=== PATIENT | male | born 1945 | race Caucasian/White ===

== ENCOUNTER 2016-07-27 03:15 | Inpatient (IN) | payer MEDICARE, OTHER ==
[~2016-07-27] VITALS: Ht 162.6 cm; Wt 100.0 kg
[~2016-07-27 03:15] MED LIST: AMLO-218 PO; ASPI-676 PO; CLOP75TA27 PO; CLOT30CR35 TOP; ESOM40CA PO; EZET10TA3 PO; LORA-441 PO; METO200T4 PO; NASO17 NASAL; NITR0.4T6 SL; OMEG1CAP2 PO; RESTOP4 BOTH EYES; SIMV40TA2 PO; SITA1TAB7 PO; SOLI5TAB5 PO; TAMS-14 PO; VALS320T11 PO
[2016-07-27] MEDS ORDERED: SODIUM CHLORIDE 0.9% 1L BAG IV* STA (04:28)
[2016-07-27] MEDS ORDERED: ACETAMINOPHEN 325 MG TAB PO STA (04:28)
--- NOTE | 2016-07-27 04:58 | RADRPT ---
PROCEDURE: XR Chest. CLINICAL INDICATION: Possible Sepsis TECHNIQUE: Single frontal chest x-ray. COMPARISON: 07/16/2015 FINDINGS: There is hypoinflation of the lungs and bibasilar atelectasis and possible infiltrates/interstitial pulmonary edema. The heart does not appear to be grossly enlarged. There is appearance of pulmonary vascular congestion appearing since the previous study. Calcification in the aortic arch. ECG lead s projected over the chest. Degenerative changes at acromioclavicular joints and in thoracic spine. IMPRESSION: Hypoinflation of the lungs and bibasilar atelectasis and possible infiltrates/interstitial pulmonary edema appearing since previous study. Pulmonary vascular congestion appearing since previous study. Please see above. RPTAT: HJES .Elio Bishop MD, Date Time Electronically viewed and signed by .Elio Bishop MD, on 07/27/2016 04:58 .S/
[2016-07-27 05:36] LABS: ADD SCAN DIFF NO
[2016-07-27 05:42] LABS: ABNORMAL IP MESSAGE 1; BASOPHILS % 0.8 % (0.0-2.0); EOSINOPHILS % 0.6 % (0.0-7.0); HEMATOCRIT 31.5 % (42.0-52.0); HEMOGLOBIN 9.9 g/dl (14.0-18.0); LYMPHOCYTES # 1.1 10^3/ul (0.8-2.9); LYMPHOCYTES % 20.2 % (15.0-51.0); MEAN CORPUSCULAR HEMOGLOBIN 18.9 pg (29.0-33.0); MEAN CORPUSCULAR HGB CONC 31.4 g/dl (32.0-37.0); MONOCYTE # 0.8 10^3/ul (0.3-0.9); MONOCYTES % 14.1 % (0.0-11.0); NEUTROPHIL # 3.4 10^3/ul (1.6-7.5); NEUTROPHILS % 63.9 % (39.0-77.0); PLATELET COUNT 172 10^3/UL (140-415); RED BLOOD COUNT 5.25 10^6/ul (4.70-6.10); RED CELL DISTRIBUTION WIDTH 17.1 % (11.5-14.5); WHITE BLOOD COUNT 5.3 10^3/ul (4.8-10.8)
[2016-07-27 05:48] LABS: ALBUMIN 4.5 g/dl (3.3-4.9)
[2016-07-27 05:48] LABS: ADD UMIC YES; URINE BILIRUBIN (Dip) NEGATIVE (NEGATIVE); URINE BLOOD (Dip) TRACE (NEGATIVE); URINE COLOR LT. YELLOW (YELLOW); URINE GLUCOSE (Dip) NEGATIVE (NEGATIVE); URINE KETONES (Dip) NEGATIVE (NEGATIVE); URINE LEUKOCYTE ESTERASE (Dip) NEGATIVE (NEGATIVE); URINE NITRITE (Dip) NEGATIVE (NEGATIVE); URINE TOTAL PROTEIN (Dip) 1+ (NEGATIVE); URINE UROBILINOGEN (Dip) 0.2 E.U./dL (0.1-1.0)
[2016-07-27 05:49] LABS: CHLORIDE 101 mmol/L (97-110); POTASSIUM 4.4 mmol/L (3.5-5.1); SODIUM 140 mmol/L (135-144)
[2016-07-27 05:51] LABS: ANION GAP 20 (8-16); BILIRUBIN,INDIRECT 0.2 mg/dl (0-1.1); BILIRUBIN,TOTAL 0.2 mg/dl (0.2-1.3); CARBON DIOXIDE 23 mmol/L (21-31); CREATININE 0.88 mg/dl (0.61-1.24)
[2016-07-27 05:52] LABS: ALANINE AMINOTRANSFERASE 32 IU/L (13-69); ALBUMIN/GLOBULIN RATIO 1.45; ALKALINE PHOSPHATASE 59 IU/L (42-121); ASPARTATE AMINO TRANSFERASE 35 IU/L (15-46); BLOOD UREA NITROGEN 17 mg/dl (7-20); CALCIUM 9.5 mg/dl (8.4-10.2); GLUCOSE 181 mg/dl (70-220); TOTAL PROTEIN 7.6 g/dl (6.1-8.1)
[2016-07-27 05:59] LABS: INR 0.99; PROTIME 13.1 Sec (12.2-14.2)
[2016-07-27 06:00] LABS: PARTIAL THROMBOPLASTIN TIME 30.1 Sec (25.0-35.0)
[2016-07-27 06:02] LABS: MEAN PLATELET VOLUME 10.5 fl (7.4-10.4)
[2016-07-27 06:04] LABS: TROPONIN-I < 0.012 ng/ml (0.00-0.12)
[2016-07-27 06:29] LABS: SQUAMOUS EPITHELIAL CELL,UR RARE; URINE RBCS 0-2 /HPF (0)
[2016-07-27 06:30] LABS: BACTERIA,URINE OCCASIONAL; URIC ACID CRYSTALS,URINE MODERATE
[2016-07-27 06:57] VITALS: TEMP 99.1
[2016-07-27 09:07] VITALS: Ht 162.6 cm; Wt 100.0 kg
[2016-07-27 09:09] VITALS: BP 148/66; PULSE 92; RESP 18
[2016-07-27 09:45] VITALS: BP 148/66; RESP 20
[2016-07-27] MEDS ORDERED: ACETAMINOPHEN 325 MG TAB PO PRN (10:00)
[2016-07-27] MEDS ORDERED: GLUCOSE GEL 15 GRAM TUBE PO PRN ×2 (10:30)
[2016-07-27] MEDS ORDERED: GLUCAGON 1 MG INJ IM PRN (10:30)
[2016-07-27] MEDS ORDERED: DEXTROSE 50% 50 ML SYRINGE IV PRN ×2 (10:30)
[2016-07-27] MEDS ORDERED: GLUCOSE GEL 15 GRAM TUBE BUCCAL PRN (10:30)
[2016-07-27] MEDS: CEFTRIAXONE 1 GM/50 ML (PMX) 50 ML IVPB SCH (11:46)
[2016-07-27] MEDS: ENOXAPARIN 40 MG/0.4 ML SYG SC SCH (11:47)
[2016-07-27] MEDS ORDERED: NON-FORMULARY/PATIENT OWN MED (Sitagliptin Phos-Metformin Hcl (Janumet) 1 TAB) PO SCH (12:00)
[2016-07-27] MEDS ORDERED: NON-FORMULARY/PATIENT OWN MED (Esomeprazole Mag Trihydrate (Nexium) 40 MG) PO SCH (12:00)
[2016-07-27] MEDS ORDERED: ALBUTEROL/IPRATROPIUM (NEB) 3 ML AMP HHN PRN (12:30)
[2016-07-27] MEDS: LEVOFLOXACIN 500MG/D5W (PMX) 100 ML IVPB SCH (12:33)
[2016-07-27] MEDS: ASPIRIN 81 MG TAB PO SCH (12:33)
[2016-07-27] MEDS: CLOPIDOGREL 75 MG TAB PO SCH (12:33)
[2016-07-27] MEDS: TAMSULOSIN (SR) 0.4 MG CAP PO SCH (12:34)
[2016-07-27] MEDS: INSULIN ASPART [NOVOLOG] 3 ML PEN SC SCH ×4 (12:38→21:00)
[2016-07-27] MEDS: METOPROLOL (XL) 100 MG TAB PO SCH (14:00)
[2016-07-27] MEDS ORDERED: FUROSEMIDE 20 MG INJ IV ONE (14:00)
[2016-07-27] MEDS: metFORMIN 500 MG TAB PO SCH (18:03)
[2016-07-27] MEDS: LINAGLIPTIN 5 MG TABLET PO SCH (18:04)
--- NOTE | 2016-07-27 18:37 | RADRPT ---
Echocardiogram Report Patient Name: JANESSA CRAWFORD Gender: Male Date: 1945 Study Date: 27-Jul-2016 Clutch Inspector: Marcus Monaco RUST Location: 2259 Ref. Physician: ZARINA BRITO Quality: Adequate Procedures: Transthoracic echocardiogram with complete 2D, M-Mode, and doppler examination. Indications: Congestive Heart Failure. 2D/M Mode Doppler Measurement Value Normal Ranges Measurement Value Normal Ranges LVIDd 2D 5.6 3.5 - 5.6 cm AV Peak Lloyd 1.4 m/sec LVIDs 2D 3.3 2.1 - 4.1 cm AV Peak PG 7.0 mmHg FS 2D 39.9 % LVOT Peak Lloyd 0.9 m/sec LVPWd 2D 1.0 0.6 - 1.1 cm LVOT Peak PG 4.0 mmHg IVSd 2D 1.0 0.6 - 1.1 cm MV E Peak Lloyd 0.6 m/sec IVS/LVPW 2D 0.9 MV A Peak Lloyd 0.8 m/sec AoR Diam 2D 2.7 2.0 - 3.7 cm MV E/A 0.8 LA/Ao 2D 1 0 - 1 MV Decel Time 173 msec EDV 2D 173.0 cm3 MV E/A 0.8 ESV 2D 37.6 cm3 LA Dimen 2D 3.3 2.3 - 4.0 cm Findings Left Ventricle: Normal left ventricular systolic function. Normal left ventricular cavity size. Normal left ventricular wall thickness. Ejection fraction is visually estimated at 5560 %. Tissue Doppler/Mitral Doppler indices are consistent with impaired relaxation (Stage I diastolic dysfunction). Right Ventricle: Normal right ventricular size. Normal right ventricular systolic function. Left Atrium: The left atrium is normal in size. Right Atrium: The right atrium is normal in size. Mitral Valve: Normal appearance of the mitral valve. Mild mitral annular calcification. Trace mitral regurgitation. Aortic Valve: No significant aortic stenosis or insufficiency. Aortic cusps appear mildly calcified. Tricuspid Valve: Normal appearance of the tricuspid valve. Unable to obtain RVSP due to minimal presence of tricuspid regurgitation. Pulmonic Valve: Normal pulmonic valve appearance. Pericardium: Normal pericardium with no significant pericardial effusion. Aorta: Normal aortic root. IVC: Normal size and normal respiratory collapse consistent with normal right atrial pressure. Conclusions 1.Normal left ventricular systolic function. Normal left ventricular cavity size. Normal left ventricular wall thickness. Ejection fraction is visually estimated at 55-60 %. Tissue Doppler/Mitral Doppler indices are consistent with impaired relaxation (Stage I diastolic dysfunction). 2.Normal appearance of the mitral valve. Mild mitral annular calcification. Trace mitral regurgitation. 3.Normal appearance of the tricuspid valve. Unable to obtain RVSP due to minimal presence of tricuspid regurgitation. Electronically Signed By: Zarina Brito 27-Jul-2016 18:37:04 -0700 Patient Name: JANESSA CRAWFORD Study Date: 27-Jul-2016 [id number]
[2016-07-27 19:44] LABS: CK-MB 2.29 ng/ml (0.0-2.4); TROPONIN-I 0.013 ng/ml (0.00-0.12)
--- NOTE | 2016-07-27 20:14 | HP ---
DATE OF ADMISSION: 07/27/2016 CHIEF COMPLAINT: Fever and dry cough. HISTORY OF PRESENT ILLNESS: The patient is a 71-year-old [place] gentleman known to me from previo admission. The patient with history of coronary artery disease status post stent placement, hype rtension, diabetes mellitus, hyperlipidemia, BPH. The patient stated he has been compliant with his medication and he follows with a specialist, Dr. Hopkins, for cardiology and also follow up with urol ogy specialist for many years. The patient has a stent placement in 2001 at [facility] and the n 3 stent placements in [address] Brito. The patient stated that he was in his usual state of h ealth until a couple of days ago. He was stated he was picking up his granddaughter who was sick wi th flu and after that the patient developed a fever, dry cough, and intermittent shortness of breath . The patient denies any chest pain, denies any extremity swelling. The patient denies any nausea, vomiting. Denies dysuria. The patient felt significantly worse last night and decided to come to the emergency room. In the emergency room, patient was found to have fever of 101.3 and blood press ure elevated to 186/84. The patient underwent a chest x-ray, which revealed hypoinflation of the rosanne ngs and bibasilar atelectasis and possible infiltrate/interstitial pulmonary edema appearing since p revious study, pulmonary vascular congestion appearing since previous study. The patient was starte d on Rocephin and was admitted for further evaluation and management. PAST MEDICAL HISTORY: Per HPI. PAST SURGICAL HISTORY: Per HPI. The patient also is status post hernia repair in 1993. FAMILY HISTORY: Noncontributory. SOCIAL HISTORY: The patient is a former smoker. The patient quit in 2001. Currently does not smok e. The patient does not abuse illicit drugs. The patient uses alcohol occasionally. Lives at home with his family. ALLERGIES: THE PATIENT IS ALLERGIC TO PROCAINE. HOME MEDICATIONS: The patient does not remember exactly and asked for the family to bring the medic ations. The patient stated he takes: 1. Aspirin. 2. Plavix. PRIOR MEDICATIONS: Include: 1. Norvasc. 2. Zetia. 3. Ativan. 4. Metoprolol. 5. Flomax. 6. Diovan. 7. VESIcare. 8. Simvastatin. 9. Janumet. 10. Nexium. REVIEW OF SYSTEMS: A 12-point review of systems is negative unless mentioned in the HPI. PHYSICAL ASSESSMENT: GENERAL: Well-developed, obese gentleman. Currently, he is awake, alert, in no acute distress. VITAL SIGNS: Temperature is 97.6, pulse is 92, blood pressure 148/66, respiratory rate 20, oxygen s aturation 96% on room air. HEENT: Head is atraumatic, normocephalic. Pupils equal, round, reactive to light and accommodation . Oral mucosa is pink and moist. NECK: Supple. No cervical lymphadenopathy, no thyromegaly. CHEST: Lungs clear, both slightly diminished at the bases. There are no rhonchi, wheezes noted. CARDIOVASCULAR: Normal S1, S2. No murmurs, gallops, clicks, rubs noted. ABDOMEN: Protuberant, soft, nondistended, nontender. Bowel sounds present. EXTREMITIES: The patient has mild edema, 1+. No clubbing, no cyanosis. Pulses equal bilaterally 2 +. SKIN: There is no rash, petechiae noted. NEUROLOGIC: The patient is awake, alert, and oriented x4. No focal deficits noted. Motor strength 5/5 in all extremities. LABORATORY DATA: On admission, CBC: White blood cells 5.3, hemoglobin 9.9, hematocrit 31.5, platel ets 172. Chemistry: Sodium is 140, potassium 4.4, chloride 101, carbon dioxide 23, anion gap 20, B UN is 17, creatinine 0.88, glucose 181. Lactic acid is 1.9. Troponin less than 0.012. ASSESSMENT AND PLAN: 1. Possible healthcare-acquired pneumonia. We will continue patient on Rocephin. Continue breathi ng treatment. 2. Rule out acute coronary syndrome. We will obtain cardiac enzymes q.8 hours x3 and 12-lead EKG. Dr. Brito will be following the patient in cardiology consultation. 3. Coronary artery disease, status post multiple stent placements in 2001 and 2005. Continue aspir in and Plavix. 4. Diabetes mellitus type 2. Continue patient's home medication, 1800 ADA diet, in addition to a 2 gram low fat, low cholesterol diet. Will start patient on NovoLog moderate algorithm sliding scale . 5. Benign prostatic hypertrophy. Continue Flomax. 6. Hypertension. Continue patient on metoprolol. 7. Obesity. Weight loss advised. 8. Will obtain influenza A and B swab. 9. Will check BNP. 10. Continue Lovenox for deep venous thrombosis prophylaxis and Nexium for peptic ulcer disease pro phylaxis. Further recommendations based on clinical course. Plan of care discussed with Dr. Ramachandran. Dictated By: GAURAV FERRO REPORTING COORDINATOR for DANISHA RAMACHANDRAN MD SR/NTS Conf#: [id number] DID#: [id number] CC: DANISHA RAMACHANDRAN MD;*EndCC*
[2016-07-27] MEDS: ATORVASTATIN 20 MG TAB PO SCH (20:42)
[2016-07-27] MEDS ORDERED: NON-FORMULARY/PATIENT OWN MED (Simvastatin* (Zocor*) 40 MG) PO SCH (21:00)
[2016-07-27 21:32] VITALS: BP 154/73; RESP 16
--- NOTE | 2016-07-27 21:43 | CONS ---
DATE OF ADMISSION: 07/27/2016 DATE OF CONSULTATION: 07/27/2016 REASON FOR CONSULTATION: Congestive heart failure exacerbation. REQUESTING PHYSICIAN: Danisha Villegas MD HISTORY OF PRESENT ILLNESS: Mr. Montanez is a 71-year-old male with a history of coronary artery d isease, status post prior PTCA and stent placement 2001, 2002, 2005; dyslipidemia; peripheral arteri al disease; prior tobacco usage; hypertension who initially presented with fevers. Patient addition ally had complaints of shortness of breath. Upon arrival, temperature 101.3, blood pressure 186/84, pulse 110, respiratory 20, saturating 94%. The patient's labs, white blood cell count 5.3, hemoglo bin 9.9, platelet count 172. Sodium 140, potassium 4.4, creatinine 0.8, BUN 17, AST 35, ALT 32. Tr oponin negative. INR 0.99. UA negative. The patient underwent a chest x-ray revealing hypoinflati on of the lungs, bibasilar atelectasis, and possible infiltrate or interstitial edema. Patient's el ectrocardiogram revealed normal sinus rhythm, rate of 99, normal axis, normal intervals with nonspec ific ST and T-wave flattening diffusely. Patient subsequently admitted to the floor and since admit to floor denies chest pain, shortness of breath. PAST MEDICAL HISTORY: As above in HPI. MEDICATIONS CURRENTLY IN HOSPITAL: 1. Protonix mg daily. 2. Lipitor 20 mg at bedtime. 3. Tradjenta 5 mg p.o. b.i.d. 4. Metformin 1000 mg b.i.d. 5. DuoNeb. 6. Aspirin 81 mg daily. 7. Plavix 75 mg daily. 8. Metoprolol XL 200 mg daily. 9. Flomax 0.4 mcg daily. 10. Lovenox 40 mg subcutaneous daily. 11. Ceftriaxone IV daily. 12. Levofloxacin IV daily. ALLERGIES: PROCAINE. SOCIAL HISTORY: Prior tobacco, no current tobacco. No ETOH or illicit drug use. FAMILY HISTORY: No history of sudden cardiac or early CAD. REVIEW OF SYSTEMS: As above in HPI. CONSTITUTIONAL: Positive fevers. PULMONARY: Mild shortness of breath. CARDIOVASCULAR: No current chest pain. GASTROINTESTINAL: No vomiting. GENITOURINARY: No hematuria. MUSCULOSKELETAL: Degenerative joint disease. PSYCHIATRIC: The patient denies depression. NEUROLOGIC: No documented history of CVA. PHYSICAL EXAMINATION VITAL SIGNS: Temperature 97.6, blood pressure most recently 148/66, pulse 93, respiratory rate 20, saturating 96%. GENERAL: The patient is alert, awake, in no acute distress. NECK: JVP approximately 9 to 10 cm of water. CHEST: Bibasilar crackles. HEART: Regular rate and rhythm. Normal S1, S2, I/ systolic murmur, nondisplaced PMI. ABDOMEN: Positive bowel sounds, soft. EXTREMITIES: Trace edema, 1+ pulses bilaterally, posterior tibial. LABORATORY DATA: As above in HPI with no further labs for review at this time. IMAGING STUDIES: As above in HPI. No further imaging studies for my review at this time. ECG: As above in HPI. No further electrocardiograms for my review at this time. IMPRESSION: 1. Congestive heart failure exacerbation, diastolic by previous echo 2015. 2. Hypertension, mildly elevated. 3. History of coronary artery disease. 4. Fevers. 5. Possible pneumonia. 6. Anemia. 7. Borderline urinary tract infection. RECOMMENDATIONS: 1. At this time, would complete a rule out for myocardial infarction to ensure the patient's EKG RI s are chronic in nature and not due to any recent acute coronary syndrome. 2. Continue the patient's current beta piotr for control of blood pressure and will add MARY inhib itor to improve overall systolic blood pressure control. 3. Will continue the patient's statin and adjust it according to a fasting lipid panel check. 4. Will initiate patient on gentle Lasix diuresis, following strict I's and O's, diuresis cl osely. 5. Check a 2D echo to reassess the patient's ejection fraction, wall motion and any major abnormali ties and continue the patient's antibiotics at this time and follow up all culture data including ur ine culture. Thank you for allowing me to take part in the care of this patient. I will continue to follow along very closely with you with further recommendations to be made as the patient progresses through his inpatient hospital clinical course. Dictated By: ZARINA SCHULTZ/JODEE Conf#: [id number] DID#: [id number] CC: DANISHA VILLEGAS MD;*EndCC*
[2016-07-27] MEDS ORDERED: EZET10TA3 PO (22:40)
[2016-07-27] MEDS ORDERED: OMEG1CAP2 PO (22:41)
[2016-07-27] MEDS ORDERED: AMLO-147 PO (22:46)
[2016-07-27] MEDS ORDERED: VALS320T14 PO (22:46)
[2016-07-27] MEDS ORDERED: SMV40T PO (22:46)
[2016-07-27] MEDS ORDERED: SITA1TAB5 PO (22:46)
[2016-07-28 01:13] LABS: TROPONIN-I 0.021 ng/ml (0.00-0.12)
[2016-07-28 01:36] LABS: CK-MB 2.02 ng/ml (0.0-2.4)
[2016-07-28] MEDS: ACCU-CHEK XX SCH (02:00)
[2016-07-28 05:38] LABS: ADD SCAN DIFF NO
[2016-07-28 06:07] LABS: CHOL/HDL RATIO 4.7 RATIO
[2016-07-28 06:19] LABS: POTASSIUM 4.5 mmol/L (3.5-5.1)
[2016-07-28 06:22] LABS: CREATININE 0.94 mg/dl (0.61-1.24)
[2016-07-28 06:23] LABS: CALCIUM 8.7 mg/dl (8.4-10.2)
[2016-07-28 06:24] LABS: ABNORMAL IP MESSAGE 1; BASOPHILS % 0.6 % (0.0-2.0); EOSINOPHILS # 0.1 10^3/ul (0.0-0.5); HEMOGLOBIN 9.4 g/dl (14.0-18.0); LYMPHOCYTES # 1.6 10^3/ul (0.8-2.9); LYMPHOCYTES % 31.4 % (15.0-51.0); MEAN CORPUSCULAR HEMOGLOBIN 18.6 pg (29.0-33.0); MEAN CORPUSCULAR HGB CONC 30.3 g/dl (32.0-37.0); MEAN CORPUSCULAR VOLUME 61.4 fl (82.0-101.0); MONOCYTE # 0.9 10^3/ul (0.3-0.9); MONOCYTES % 16.9 % (0.0-11.0); NEUTROPHIL # 2.5 10^3/ul (1.6-7.5); NEUTROPHILS % 49.7 % (39.0-77.0); PLATELET COUNT 157 10^3/UL (140-415); RED BLOOD COUNT 5.05 10^6/ul (4.70-6.10); RED CELL DISTRIBUTION WIDTH 18.1 % (11.5-14.5); WHITE BLOOD COUNT 5.1 10^3/ul (4.8-10.8)
[2016-07-28] MEDS: PANTOPRAZOLE (EC) 40 MG TAB PO SCH (06:29)
[2016-07-28] MEDS: INSULIN ASPART [NOVOLOG] 3 ML PEN SC SCH ×3 (08:00→17:49)
[2016-07-28 08:06] VITALS: BP 128/59; RESP 16
[2016-07-28] MEDS: BENAZEPRIL 10 MG TAB PO SCH (08:51)
[2016-07-28] MEDS: TAMSULOSIN (SR) 0.4 MG CAP PO SCH (08:51)
[2016-07-28] MEDS: ASPIRIN 81 MG TAB PO SCH (08:51)
[2016-07-28] MEDS: LINAGLIPTIN 5 MG TABLET PO SCH ×2 (08:51→18:18)
[2016-07-28] MEDS: metFORMIN 500 MG TAB PO SCH ×2 (08:51→18:18)
[2016-07-28] MEDS: METOPROLOL (XL) 100 MG TAB PO SCH ×2 (08:52→20:53)
[2016-07-28] MEDS: CLOPIDOGREL 75 MG TAB PO SCH (08:52)
[2016-07-28] MEDS: ENOXAPARIN 40 MG/0.4 ML SYG SC SCH (08:54)
--- NOTE | 2016-07-28 10:08 | CONS ---
Date/Time of Note Date/Time of Note DATE: 07/28/16 TIME: 10:06 Assessment/Plan Assessment/Plan Additional Assessment/Plan 1. Congestive heart failure exacerbation, diastolic by previous echo 2016- better fluid status - con't to keep euvolemic. 2. Hypertension, mildly elevated - better now, will adjust therapy as needed 3. History of coronary artery disease- R/o [place] - no intervention planned now 4. Fevers- with PNA - on anti-bx, feels better today 5. Possible pneumonia. 6. Anemia- H/H stable - no evidence of bleeding 7. Borderline urinary tract infection. Consultation Date/Type/Reason Admit Date/Time Jul 27, 2016 at 18:28 Initial Consult Date 24 HR Interval Summary Free Text/Dictation No acute events - feels much better today - no fever - stable fluid status - con 't anti-Bx ROS: No fever, no chills, no nausea, no vomiting, no diarrhea/constipation No recent weight changes No chest pain, no PND, no orthopnea No dizziness, blurred vision No thirst, no heat or cold intolerance Exam/Review of Systems Vital Signs Vitals Vital Signs Date Time Temp Pulse Resp B/P Pulse Ox O2 Delivery O2 Flow Rate FiO2 07/28/16 08:06 98.7 78 16 128/59 94 07/27/16 09:09 Room Air Intake and Output 07/27/16 07/27/16 07/28/16 15:00 23:00 07:00 Intake Total 150 ml 620 ml 300 ml Balance 150 ml 620 ml 300 ml Exam General: WN/WD/NAD, AOx 3 HEENT: Unicetric/atraumatic/EOMI (follow commands) NECK: JVD elevated, no thyromegaly Lymph: no lymphadenopathy HEART: regular with no S3, II/ systolic murmur at apex LUNGS: Coarse sounds ABD: soft, NT, ND, +BS : Intact Neuro: non focal SKIN: chronic changes EXT: trace edema Results Result Diagram: 07/28/16 0510 07/28/16 0510 Results 24 hrs Laboratory Tests Test 07/27/16 11:56 07/27/16 17:05 07/27/16 19:00 07/27/16 20:38 Bedside Glucose 202 173 156 Creatine Kinase 211 H Creatine Kinase Index 1.1 Creatinine Kinase MB (Mass) 2.29 Troponin I 0.013 Test 07/28/16 00:30 07/28/16 05:10 07/28/16 08:09 Creatine Kinase 193 Creatine Kinase Index 1.0 Creatinine Kinase MB (Mass) 2.02 Troponin I 0.021 Anion Gap 19 H Basophils # 0.0 Basophils % 0.6 Blood Urea Nitrogen 18 Calcium Level 8.7 Carbon Dioxide Level 25 Chloride Level 100 Cholesterol Level 127 Cholesterol/HDL Ratio 4.7 Creatinine 0.94 Eosinophils # 0.1 Eosinophils % 1.0 Glucose Level 127 # HDL Cholesterol 27 L Hematocrit 31.0 L Hemoglobin 9.4 L LDL Cholesterol, Calculated 43 Lymphocytes # 1.6 Lymphocytes % 31.4 Mean Corpuscular Hemoglobin 18.6 L Mean Corpuscular Hemoglobin Concent 30.3 L Mean Corpuscular Volume 61.4 L Mean Platelet Volume Monocytes # 0.9 Monocytes % 16.9 H Neutrophils # 2.5 Neutrophils % 49.7 Nucleated Red Blood Cells # 0.0 Nucleated Red Blood Cells % 0.0 Platelet Count 157 Potassium Level 4.5 Red Blood Count 5.05 Red Cell Distribution Width 18.1 H Sodium Level 139 Triglycerides Level 285 H White Blood Count 5.1 Bedside Glucose 149 Medications Medications Current Medications Acetaminophen (Tylenol Tab) 650 mg Q4H PRN PO PAIN AND OR ELEVATED TEMP; Start 07/27/16 at 10:00 Enoxaparin Sodium 40 mg 40 mg DAILY SC Last administered on 07/28/16 08:54; Admin Dose 40 MG; Start 07/27/16 at 10:00 Ceftriaxone Sodium 50 ml @ 100 mls/hr Q24H IVPB Last administered on 11:46; Admin Dose 100 MLS/HR; Start 07/27/16 at 10:00 Levofloxacin/ Dextrose (Levaquin 500mg/ D5W 100 ml (Pmx)) 100 ml @ 100 mls/hr Q24H IVPB Last administered on 07/27/16 12:33; Admin Dose 100 MLS/HR; Start at 10:00 Diagnostic Test (Pha) (Accucheck) 1 ea 02 XX ; Start 07/28/16 at 02:00 Miscellaneous Information 1 ea NOTE XX ; Start 07/27/16 at 10:30 Glucose (Glutose) 15 gm Q15M PRN PO DECREASED GLUCOSE; Start 07/27/16 at 10:30 Glucose (Glutose) 22.5 gm Q15M PRN PO DECREASED GLUCOSE; Start 07/27/16 at 10: 30 Dextrose (D50w Syringe) 25 ml Q15M PRN IV DECREASED GLUCOSE; Start 07/27/16 at 10:30 Dextrose (D50w Syringe) 50 ml Q15M PRN IV DECREASED GLUCOSE; Start 07/27/16 at 10:30 Glucagon (Glucagen) 1 mg Q15M PRN IM DECREASED GLUCOSE; Start 07/27/16 at 10:30 Glucose (Glutose) 15 gm Q15M PRN BUCCAL DECREASED GLUCOSE; Start 07/27/16 at 10 :30 Influenza Virus Vaccine (Fluzone) 0.5 ml ONCE ONCE IM* ; Start 07/29/16 at 10:00 ; Stop 07/29/16 at 10:01 Aspirin (Aspirin) 81 mg DAILY PO Last administered on 07/28/16 08:51; Admin Dose 81 MG; Start 07/27/16 at 12:00 Clopidogrel Bisulfate (plaVIX) 75 mg DAILY PO Last administered on 07/28/16 08 :52; Admin Dose 75 MG; Start 07/27/16 at 12:00 Metoprolol Succinate (Toprol Xl) 200 mg DAILY PO Last administered on 08:52; Admin Dose 200 MG; Start 07/27/16 at 12:00 Tamsulosin HCl (Flomax) 0.4 mg DAILY PO Last administered on 07/28/16 08:51; Admin Dose 0.4 MG; Start 07/27/16 at 12:00 Pantoprazole (Protonix Tab) 40 mg DAILY@06 PO Last administered on 07/28/16 06 :29; Admin Dose 40 MG; Start 07/28/16 at 06:00 Atorvastatin Calcium (Lipitor) 20 mg DAILY@21 PO Last administered on 20:42; Admin Dose 20 MG; Start 07/27/16 at 21:00 Benazepril HCl (Lotensin) 10 mg DAILY PO Last administered on 07/28/16 08:51; Admin Dose 10 MG; Start 07/28/16 at 09:00 JUNIOR CARTAGENA MD Jul 28, 2016 10:08
[2016-07-28] MEDS: CEFTRIAXONE 1 GM/50 ML (PMX) 50 ML IVPB SCH (10:50)
[2016-07-28] MEDS: LEVOFLOXACIN 500MG/D5W (PMX) 100 ML IVPB SCH (11:27)
--- NOTE | 2016-07-28 14:41 | PN ---
Date/Time of Note Date/Time of Note DATE: 07/28/16 TIME: 14:36 Assessment/Plan VTE Prophylaxis VTE Prophylaxis Intervention: LMWH Lines/Catheters IV Catheter Type (from Rust): Saline Lock Assessment/Plan Chief Complaint/Hosp Course ASSESSMENT AND PLAN: 1. Possible healthcare-acquired pneumonia. Continue Rocephin and Levaquin. 2. Rule out acute coronary syndrome. Cardiac enzymes negative. Dr. Brito will be following the patient in cardiology consultation. 3. Coronary artery disease, status post multiple stent placements in 2001 and 2005. Continue aspirin and Plavix. 4. Diabetes mellitus type 2. Continue patient's home medication, 1800 ADA diet , in addition to a 2 gram low fat, low cholesterol diet. Continue NovoLog per moderate algorithm sliding scale. 5. Benign prostatic hypertrophy. Continue Flomax. 6. Hypertension. Continue patient on metoprolol. 7. Obesity. Weight loss advised. Continue Lovenox for deep venous thrombosis prophylaxis and Nexium for peptic ulcer disease prophylaxis. Further recommendations based on clinical course. Plan of care discussed with Dr. Villegas. Problems: Subjective 24 Hr Interval Summary Free Text/Dictation Patient denies any fever nausea vomiting, denies any chest pain, continues to have generalized weakness and dry cough. Exam/Review of Systems Vital Signs Vitals Vital Signs Date Time Temp Pulse Resp B/P Pulse Ox O2 Delivery O2 Flow Rate FiO2 07/28/16 08:06 98.7 78 16 128/59 94 07/27/16 09:09 Room Air Intake and Output 07/27/16 07/27/16 07/28/16 15:00 23:00 07:00 Intake Total 150 ml 620 ml 300 ml Balance 150 ml 620 ml 300 ml Exam PHYSICAL ASSESSMENT: GENERAL: Well-developed, obese gentleman. Currently, he is awake, alert, in no acute distress. HEENT: Head is atraumatic, normocephalic. PERRLA. NECK: Supple. No cervical lymphadenopathy, no thyromegaly. CHEST: Lungs clear, both slightly diminished at the bases. There are no rhonchi, wheezes noted. CARDIOVASCULAR: Normal S1, S2. No murmurs, gallops, clicks, rubs noted. ABDOMEN: Protuberant, soft, nondistended, nontender. Bowel sounds present. EXTREMITIES: The patient has mild edema, 1+. No clubbing, no cyanosis. Pulses equal bilaterally 2+. SKIN: There is no rash, petechiae noted. NEUROLOGIC: The patient is awake, alert, and oriented x4 Results Result Diagram: 07/28/16 0510 07/28/16 0510 Results 24 hrs Laboratory Tests Test 07/27/16 17:05 07/27/16 19:00 07/27/16 20:38 07/28/16 00:30 Bedside Glucose 173 156 Creatine Kinase 211 H 193 Creatine Kinase Index 1.1 1.0 Creatinine Kinase MB (Mass) 2.29 2.02 Troponin I 0.013 0.021 Test 07/28/16 05:10 07/28/16 08:09 07/28/16 11:54 Anion Gap 19 H Basophils # 0.0 Basophils % 0.6 Blood Urea Nitrogen 18 Calcium Level 8.7 Carbon Dioxide Level 25 Chloride Level 100 Cholesterol Level 127 Cholesterol/HDL Ratio 4.7 Creatinine 0.94 Eosinophils # 0.1 Eosinophils % 1.0 Glucose Level 127 # HDL Cholesterol 27 L Hematocrit 31.0 L Hemoglobin 9.4 L LDL Cholesterol, Calculated 43 Lymphocytes # 1.6 Lymphocytes % 31.4 Mean Corpuscular Hemoglobin 18.6 L Mean Corpuscular Hemoglobin Concent 30.3 L Mean Corpuscular Volume 61.4 L Mean Platelet Volume Monocytes # 0.9 Monocytes % 16.9 H Neutrophils # 2.5 Neutrophils % 49.7 Nucleated Red Blood Cells # 0.0 Nucleated Red Blood Cells % 0.0 Platelet Count 157 Potassium Level 4.5 Red Blood Count 5.05 Red Cell Distribution Width 18.1 H Sodium Level 139 Triglycerides Level 285 H White Blood Count 5.1 Bedside Glucose 149 152 Medications Medications Current Medications Acetaminophen (Tylenol Tab) 650 mg Q4H PRN PO PAIN AND OR ELEVATED TEMP; Start 07/27/16 at 10:00 Enoxaparin Sodium 40 mg 40 mg DAILY SC Last administered on 07/28/16 08:54; Admin Dose 40 MG; Start 07/27/16 at 10:00 Ceftriaxone Sodium 50 ml @ 100 mls/hr Q24H IVPB Last administered on 10:50; Admin Dose 100 MLS/HR; Start 07/27/16 at 10:00 Levofloxacin/ Dextrose (Levaquin 500mg/ D5W 100 ml (Pmx)) 100 ml @ 100 mls/hr Q24H IVPB Last administered on 07/28/16 11:27; Admin Dose 100 MLS/HR; Start at 10:00 Diagnostic Test (Pha) (Accucheck) 1 ea 02 XX ; Start 07/28/16 at 02:00 Miscellaneous Information 1 ea NOTE XX ; Start 07/27/16 at 10:30 Glucose (Glutose) 15 gm Q15M PRN PO DECREASED GLUCOSE; Start 07/27/16 at 10:30 Glucose (Glutose) 22.5 gm Q15M PRN PO DECREASED GLUCOSE; Start 07/27/16 at 10: 30 Dextrose (D50w Syringe) 25 ml Q15M PRN IV DECREASED GLUCOSE; Start 07/27/16 at 10:30 Dextrose (D50w Syringe) 50 ml Q15M PRN IV DECREASED GLUCOSE; Start 07/27/16 at 10:30 Glucagon (Glucagen) 1 mg Q15M PRN IM DECREASED GLUCOSE; Start 07/27/16 at 10:30 Glucose (Glutose) 15 gm Q15M PRN BUCCAL DECREASED GLUCOSE; Start 07/27/16 at 10 :30 Influenza Virus Vaccine (Fluzone) 0.5 ml ONCE ONCE IM* ; Start 07/29/16 at 10:00 ; Stop 07/29/16 at 10:01 Aspirin (Aspirin) 81 mg DAILY PO Last administered on 07/28/16 08:51; Admin Dose 81 MG; Start 07/27/16 at 12:00 Clopidogrel Bisulfate (plaVIX) 75 mg DAILY PO Last administered on 07/28/16 08 :52; Admin Dose 75 MG; Start 07/27/16 at 12:00 Metoprolol Succinate (Toprol Xl) 200 mg DAILY PO Last administered on 08:52; Admin Dose 200 MG; Start 07/27/16 at 12:00 Tamsulosin HCl (Flomax) 0.4 mg DAILY PO Last administered on 07/28/16 08:51; Admin Dose 0.4 MG; Start 07/27/16 at 12:00 Pantoprazole (Protonix Tab) 40 mg DAILY@06 PO Last administered on 07/28/16 06 :29; Admin Dose 40 MG; Start 07/28/16 at 06:00 Atorvastatin Calcium (Lipitor) 20 mg DAILY@21 PO Last administered on 20:42; Admin Dose 20 MG; Start 07/27/16 at 21:00 Benazepril HCl (Lotensin) 10 mg DAILY PO Last administered on 07/28/16 08:51; Admin Dose 10 MG; Start 07/28/16 at 09:00 GAURAV FERRO Jul 28, 2016 14:41
--- NOTE | 2016-07-28 16:59 | RADRPT ---
Vent Rate: 64 bpm RR Interval: 0 msec CA Interval: 184 msec QRS Duration: 100 msec QT Interval: 428 msec QTC Interval: 441 msec P-R-T Pep: 49 - 65 - 53 degrees Normal sinus rhythm with sinus arrhythmia Normal ECG Electronically Signed By: Alec Mcbride [id number]
--- NOTE | 2016-07-28 17:22 | CONS ---
DATE OF ADMISSION: 07/27/2016 DATE OF CONSULTATION: 07/28/2016 TYPE OF CONSULTATION: Infectious Disease. REASON FOR CONSULTATION: Antibiotic management. HISTORY OF PRESENT ILLNESS: Florentino Montanez is a 71-year-old [place] male [facility] who comes in with fever and dry cough. His problems include: 1. Coronary artery disease. 2. Status post stent placement. 3. Hypertension. 4. Adult-onset diabetes mellitus. 5. Hyperlipidemia. 6. Benign prostatic hypertrophy. The patient is being followed by Dr. Juan Hopkins, had a stent pl acement in 2001 in [facility] and then 3 stent placements in [address] Brito. His granddau ghter was sick with the flu and the patient developed a fever, dry cough, intermittent shortness of breath. He denies any chest pain, nausea, vomiting or dysuria. He came to the emergency room, was found to have a fever of 101.3, blood pressure 186/84. He underwent a chest x-ray which showed hypo inflation of the lungs and bibasilar atelectasis, possible interstitial infiltrates with pulmonary e vamshi and pulmonary vascular congestion. He was started on Rocephin and was admitted for further john luation and management. The patient is a former smoker and quit in 2001. He does not abuse illicit drugs. HE IS ALLERGIC TO PROCAINE. PAST MEDICAL HISTORY: Operations as outlined. FAMILY HISTORY: Noncontributory. SOCIAL HISTORY: Does not smoke, drink or abuse drugs. ALLERGIES: PROCAINE. MEDICATIONS: Per chart. REVIEW OF SYSTEMS: As per HPI. PHYSICAL EXAMINATION: GENERAL: The patient is a well-developed, obese male who is alert, responsive, in no acute distress . VITAL SIGNS: Stable. He is afebrile. SKIN: Without generalized rash. HEENT: Within normal limits. NECK: Supple. LYMPH NODES: None palpable. CHEST: Decreased breath sounds at the bases without rhonchi. HEART: Without murmur or gallops. ABDOMEN: Soft, distended, nontender, without organosplenomegaly or masses. EXTREMITIES: Without cyanosis or clubbing or edema. He has 1+ pedal edema. RECTAL AND GENITAL: Deferred. NEUROLOGIC: No focal neurological abnormality. ANCILLARY LABORATORY DATA: White count 5.3, H and H of 9.9 and 31.5, platelet count 172,000. BUN a nd creatinine 17/0.88. Lactic acid was 1.9. His chest x-ray showed hypoinflation of the lungs, bas ilar atelectasis, possible infiltrates as noted. IMPRESSION AND PLAN: The patient was begun on ceftriaxone and Levaquin for community-acquired pneum onia. We will continue him on this regimen. I will dictate my findings to Dr. Villegas and to Dr. Brito. Dictated By: DARELL RICE MD, JD/JODEE Conf#: [id number] DID#: [id number]
[2016-07-28] MEDS: ATORVASTATIN 20 MG TAB PO SCH (20:56)
[2016-07-28 22:55] VITALS: BP 117/64; RESP 20
[2016-07-29] MEDS: ACCU-CHEK XX SCH (02:00)
[2016-07-29] MEDS: PANTOPRAZOLE (EC) 40 MG TAB PO SCH ×2 (04:58→08:25)
[2016-07-29 06:32] LABS: ADD SCAN DIFF NO
[2016-07-29 06:38] LABS: BASOPHILS % 0.5 % (0.0-2.0); EOSINOPHILS # 0.1 10^3/ul (0.0-0.5); EOSINOPHILS % 1.9 % (0.0-7.0); HEMATOCRIT 31.3 % (42.0-52.0); HEMOGLOBIN 9.5 g/dl (14.0-18.0); LYMPHOCYTES # 1.6 10^3/ul (0.8-2.9); LYMPHOCYTES % 36.7 % (15.0-51.0); MEAN CORPUSCULAR HEMOGLOBIN 18.4 pg (29.0-33.0); MEAN CORPUSCULAR HGB CONC 30.4 g/dl (32.0-37.0); MEAN CORPUSCULAR VOLUME 60.8 fl (82.0-101.0); MEAN PLATELET VOLUME 10.1 fl (7.4-10.4); MONOCYTE # 0.6 10^3/ul (0.3-0.9); MONOCYTES % 14.6 % (0.0-11.0); NEUTROPHILS % 45.8 % (39.0-77.0); PLATELET COUNT 178 10^3/UL (140-415); RED BLOOD COUNT 5.15 10^6/ul (4.70-6.10); RED CELL DISTRIBUTION WIDTH 17.2 % (11.5-14.5); WHITE BLOOD COUNT 4.3 10^3/ul (4.8-10.8)
[2016-07-29 06:41] LABS: RETICULOCYTE COUNT % 0.9 % (0.5-1.5)
[2016-07-29 07:04] LABS: POTASSIUM 4.2 mmol/L (3.5-5.1)
[2016-07-29 07:07] LABS: CREATININE 1.14 mg/dl (0.61-1.24)
[2016-07-29 07:08] LABS: CALCIUM 8.7 mg/dl (8.4-10.2)
[2016-07-29 07:37] LABS: IRON 53 ug/dl (35-150)
[2016-07-29 07:42] LABS: THYROID STIMULATING HORMONE 3.66 MIU/L (0.465-4.680)
[2016-07-29 07:46] LABS: TOTAL IRON BINDING CAPACITY 288 ug/dl (241-421)
[2016-07-29 08:16] LABS: FOLATE 19.3 ng/ml (2.8-20.0)
[2016-07-29] MEDS: metFORMIN 500 MG TAB PO SCH ×2 (08:24→18:05)
[2016-07-29] MEDS: TAMSULOSIN (SR) 0.4 MG CAP PO SCH (08:25)
[2016-07-29] MEDS: ASPIRIN 81 MG TAB PO SCH (08:26)
[2016-07-29] MEDS: LINAGLIPTIN 5 MG TABLET PO SCH ×2 (08:26→18:05)
[2016-07-29] MEDS: CLOPIDOGREL 75 MG TAB PO SCH (08:26)
[2016-07-29] MEDS: METOPROLOL (XL) 100 MG TAB PO SCH ×2 (08:26→21:54)
[2016-07-29] MEDS: BENAZEPRIL 10 MG TAB PO SCH (08:26)
[2016-07-29] MEDS: ENOXAPARIN 40 MG/0.4 ML SYG SC SCH (08:29)
[2016-07-29] MEDS ORDERED: INFLUENZA VIRUS VACCINE 0.5 ML (DISPENSING) IM* ONE (10:00)
[2016-07-29] MEDS: CEFTRIAXONE 1 GM/50 ML (PMX) 50 ML IVPB SCH (10:13)
[2016-07-29] MEDS: LEVOFLOXACIN 500MG/D5W (PMX) 100 ML IVPB SCH (10:13)
--- NOTE | 2016-07-29 11:14 | CONS ---
Date/Time of Note Date/Time of Note DATE: 07/29/16 TIME: 11:11 Assessment/Plan Assessment/Plan Chief Complaint/Hosp Course IMPRESSION: 1. Congestive heart failure exacerbation, diastolic by previous echo 2016. 2. Hypertension-improved 3. History of coronary artery disease. 4. Fevers. 5. Possible pneumonia. 6. Anemia. 7. Borderline urinary tract infection. Recc: -Continue asa/plavix -Contineu toprol/benazepril -Continue statin -Continue abx's/bronchodilators/steroids -Gentle lasix diuresis Problems: Consultation Date/Type/Reason Admit Date/Time Jul 27, 2016 at 18:28 Initial Consult Date 07/28/2016 Type of Consultation: Cardiology Reason for Consultation CHF Referring Provider: DANISHA RAMACHANDRAN MD Exam/Review of Systems Vital Signs Vitals Vital Signs Date Time Temp Pulse Resp B/P Pulse Ox O2 Delivery O2 Flow Rate FiO2 07/28/16 22:55 98.0 68 20 117/64 96 07/27/16 09:09 Room Air Intake and Output 07/28/16 07/28/16 07/29/16 15:00 23:00 07:00 Intake Total 1620 ml 450 ml Balance 1620 ml 450 ml Exam Review of Systems: CONSTITUTIONAL: No fevers, chills. PULMONARY: mild sob CARDIOVASCULAR: No chest pain/palpitations GASTROINTESTINAL: No nausea/vomiting. GENITOURINARY: No hematuria/dysuria. MUSCULOSKELETAL: No myagias/arthalgias. PSYCHIATRIC: The patient denies depression. NEUROLOGIC: No weakness Constitutional: alert, oriented Psych: no complaints Head: normocephalic ENMT: mucosa pink and moist Neck: jvd (9 cm water), supple Respiratory: diminished breath sounds (at bases/B) Cardiovascular: regular rate and rhythm Gastrointestinal: non-tender, soft Musculoskeletal: muscle tone (normal) Extremities: edema (none) Neurological: other (No focal deficits) Results Result Diagram: 07/29/16 0552 07/29/16 0552 Results 24 hrs Laboratory Tests Test 07/28/16 11:54 07/28/16 17:29 07/28/16 20:30 07/29/16 05:52 Bedside Glucose 152 173 132 White Blood Count 4.3 L Red Blood Count 5.15 Hemoglobin 9.5 L Hematocrit 31.3 L Mean Corpuscular Volume 60.8 L Mean Corpuscular Hemoglobin 18.4 L Mean Corpuscular Hemoglobin Concent 30.4 L Red Cell Distribution Width 17.2 H Platelet Count 178 Mean Platelet Volume 10.1 Neutrophils % 45.8 Lymphocytes % 36.7 Monocytes % 14.6 H Eosinophils % 1.9 Basophils % 0.5 Nucleated Red Blood Cells % 0.0 Neutrophils # 2.0 Lymphocytes # 1.6 Monocytes # 0.6 Eosinophils # 0.1 Basophils # 0.0 Nucleated Red Blood Cells # 0.0 Absolute Reticulocyte Count 0.047 Percent Reticulocyte Count 0.9 Sodium Level 140 Potassium Level 4.2 Chloride Level 103 Carbon Dioxide Level 22 Anion Gap 19 H Blood Urea Nitrogen 29 #H Creatinine 1.14 Glucose Level 117 Calcium Level 8.7 Iron Level 53 Total Iron Binding Capacity 288 Percent Iron Saturation 18 L Ferritin 430.0 H Lactate Dehydrogenase 444 Vitamin B12 Level 532 Folate 19.3 Thyroid Stimulating Hormone (TSH) 3.660 Medications Medications Current Medications Acetaminophen (Tylenol Tab) 650 mg Q4H PRN PO PAIN AND OR ELEVATED TEMP; Start 07/27/16 at 10:00 Enoxaparin Sodium 40 mg 40 mg DAILY SC Last administered on 07/29/16 08:29; Admin Dose 40 MG; Start 07/27/16 at 10:00 Ceftriaxone Sodium 50 ml @ 100 mls/hr Q24H IVPB Last administered on 10:13; Admin Dose 100 MLS/HR; Start 07/27/16 at 10:00 Levofloxacin/ Dextrose (Levaquin 500mg/ D5W 100 ml (Pmx)) 100 ml @ 100 mls/hr Q24H IVPB Last administered on 07/29/16 10:13; Admin Dose 100 MLS/HR; Start at 10:00 Diagnostic Test (Pha) (Accucheck) 1 ea 02 XX ; Start 07/28/16 at 02:00 Miscellaneous Information 1 ea NOTE XX ; Start 07/27/16 at 10:30 Glucose (Glutose) 15 gm Q15M PRN PO DECREASED GLUCOSE; Start 07/27/16 at 10:30 Glucose (Glutose) 22.5 gm Q15M PRN PO DECREASED GLUCOSE; Start 07/27/16 at 10: 30 Dextrose (D50w Syringe) 25 ml Q15M PRN IV DECREASED GLUCOSE; Start 07/27/16 at 10:30 Dextrose (D50w Syringe) 50 ml Q15M PRN IV DECREASED GLUCOSE; Start 07/27/16 at 10:30 Glucagon (Glucagen) 1 mg Q15M PRN IM DECREASED GLUCOSE; Start 07/27/16 at 10:30 Glucose (Glutose) 15 gm Q15M PRN BUCCAL DECREASED GLUCOSE; Start 07/27/16 at 10 :30 Aspirin (Aspirin) 81 mg DAILY PO Last administered on 07/29/16 08:26; Admin Dose 81 MG; Start 07/27/16 at 12:00 Clopidogrel Bisulfate (plaVIX) 75 mg DAILY PO Last administered on 07/29/16 08 :26; Admin Dose 75 MG; Start 07/27/16 at 12:00 Tamsulosin HCl (Flomax) 0.4 mg DAILY PO Last administered on 07/29/16 08:25; Admin Dose 0.4 MG; Start 07/27/16 at 12:00 Pantoprazole (Protonix Tab) 40 mg DAILY@06 PO Last administered on 07/29/16 08 :25; Admin Dose 40 MG; Start 07/28/16 at 06:00 Atorvastatin Calcium (Lipitor) 20 mg DAILY@21 PO Last administered on 20:42; Admin Dose 20 MG; Start 07/27/16 at 21:00 Benazepril HCl (Lotensin) 10 mg DAILY PO Last administered on 07/29/16 08:26; Admin Dose 10 MG; Start 07/28/16 at 09:00 Metoprolol Succinate (Toprol Xl) 100 mg BID PO Last administered on 07/29/16 08:26; Admin Dose 100 MG; Start 07/28/16 at 21:00 ZARINA JAVED Jul 29, 2016 11:14
[2016-07-29] MEDS ORDERED: PEG/ELECTROLYTES 4L BTL PO ONE ×2 (13:00→14:00)
--- NOTE | 2016-07-29 13:29 | CONS ---
DATE OF ADMISSION: 07/27/2016 DATE OF CONSULTATION: 07/29/2016 TYPE OF CONSULTATION: Gastroenterology. Dear Dr. Villegas: Thank you for asking me to see this patient in GI consultation. HISTORY OF PRESENT ILLNESS: The patient is a 71-year-old [place] gentleman is admitted to the hosp ital because of cough. I suspect he has an upper respiratory infection for which he is being treate d. His hemoglobin is around 9.4 and hence the GI consultation is requested. He has occasional hear tburn, but currently his no significant upper GI or lower GI symptoms. No history of passing blood from the rectum. He has no weight loss. He is not aware of having any anemia in the past. MEDICATIONS: He has been on multiple medications at home which includes 1. Flomax. 2. Clopidogrel. 3. Norvasc. 4. Zetia. 5. Toprol. 6. Nitroglycerin. 7. Lovaza 8. Zocor. 9. Qamar aspirin 10. Lorazepam. 11. Aspirin. 12. Nexium. 13. Janumet. 14. VESIcare. SOCIAL HISTORY: The patient does not smoke or drink. He used to be an aeration senior web engineer. REVIEW OF SYSTEM: Essentially as mentioned above. He has a history positive mentioned earlier on h ypertension, hypercholesterolemia, coronary artery disease status post multiple stent placements, ob esity. PHYSICAL EXAMINATION: GENERAL: The patient is a 71-year-old [place] gentleman who is obese, not in distress. CARDIOVASCULAR: Normal heart sounds. RESPIRATORY: Normal breath sounds. ABDOMEN: Shows soft abdomen with no palpable masses, no tenderness, no distention. RECTAL: Deferred. LABORATORY WORKUP: Hemoglobin at one time 9.4, hematocrit 31.0, WBC 5100, platelets 157,000. The B UN is 29, creatinine 1.14. Serum iron is 53. Serum ferritin is pending. Coagulation prothrombin t georgette 13.1, INR 0.99. CLINICAL IMPRESSION: The patient has a severe iron deficiency type of anemia. Certainly one should rule out the possibility of GI source of bleeding like peptic ulcer disease, arteriovenous malforma tion, neoplastic process of the gastrointestinal tract. Hypertension, coronary artery disease, hypercholesterolemia. PLAN: Recommend upper endoscopy as well as lower endoscopy. Once again, Doctor, thank you for this consultation. Dictated By: MELISSA VELASCO MD NC/NTS Conf#: [id number] DID#: [id number] CC: DANISHA VILLEGAS MD;*End*
--- NOTE | 2016-07-29 14:32 | PN ---
DATE: 07/29/2016 SUBJECTIVE: Patient is alert, feels better and wants to go home. No fevers. Vital signs stable. WBC 4.3, no shift, no bands. BUN 29, creatinine 1.14. ANTIMICROBIALS: The patient is on: 1. Rocephin. 2. Levaquin. PHYSICAL EXAMINATION: GENERAL: This is a well-developed, obese, elderly man who is alert, in no distress. HEENT: Head atraumatic, normocephalic. Sclerae anicteric. Buccal mucosa pink. NECK: Supple, trachea midline. CHEST: Rise symmetrical. Breath sounds clear. HEART: S1, S2. ABDOMEN: Soft, bowel tones present. EXTREMITIES: Without cyanosis or edema. ASSESSMENT: 1. Community-acquired pneumonia. 2. Coronary artery disease with history of stent placement. 3. Diabetes. 4. Benign prostatic hypertrophy. 5. Anemia. PLAN: The patient remains stable, overall improving. We will continue him on oral Levaquin, dia [place], anticipate treating with Levaquin for a total of 10 days. Dictated By: IMMANUEL [employer] PERSON for DARELL RICE MD NI/NTS Conf#: [id number] DID#: [id number]
--- NOTE | 2016-07-29 16:12 | CONS ---
Date/Time of Note Date/Time of Note DATE: 07/29/16 TIME: 16:08 Assessment/Plan Assessment/Plan Chief Complaint/Hosp Course The patient is a 71 year old male with diabetes, BPH, CAD, with community- acquired pneumonia with microcytic anemia and elevated RDW. - Plan for EGD/colo per GI. Appreciate GI assistance. - Iron panel more suggestive of anemia of chronic inflammation though cannot rule out component of iron deficiency, especially in the setting of microcytic anemia with elevated RDW. - LDH normal, B12/folate WNL, retic count inappropriately low - Will continue to follow Problems: Consultation Date/Type/Reason Admit Date/Time Jul 27, 2016 at 18:28 Date of Consultation: Jul 29, 2016 Type of Consultation: Hematology/Oncology Hx of Present Illness The patient is a 71 year old male with diabetes, BPH, CAD, with community- acquired pneumonia. Patient has a hemoglobin around mid 9, denies bleeding. Nurse has not noted hematochezia or melena but has not had a recent bowel movement. Patient denies any other complaints. Psychological: no complaints Past Medical History 1. Community-acquired pneumonia. 2. Coronary artery disease with history of stent placement. 3. Diabetes. 4. Benign prostatic hypertrophy. Family History Significant Family History: no pertinent family hx Social History Smoking Status: Former smoker Exam/Review of Systems Vital Signs Vitals Vital Signs Date Time Temp Pulse Resp B/P Pulse Ox O2 Delivery O2 Flow Rate FiO2 07/28/16 22:55 98.0 68 20 117/64 96 07/27/16 09:09 Room Air Intake and Output 07/28/16 07/28/16 07/29/16 14:59 22:59 06:59 Intake Total 1620 ml 450 ml Balance 1620 ml 450 ml Exam Constitutional: alert, oriented Psych: no complaints Head: normocephalic Eyes: nl conjunctiva Neck: supple Respiratory: clear to auscultation Cardiovascular: regular rate and rhythm Gastrointestinal: non-tender, soft Musculoskeletal: nl extremities to inspection Results Result Diagram: 07/29/16 0552 07/29/16 0552 Results 24 hrs Laboratory Tests Test 07/28/16 17:29 07/28/16 20:30 07/29/16 02:00 07/29/16 05:52 Bedside Glucose 173 132 Stool Occult Blood NEGATIVE White Blood Count 4.3 L Red Blood Count 5.15 Hemoglobin 9.5 L Hematocrit 31.3 L Mean Corpuscular Volume 60.8 L Mean Corpuscular Hemoglobin 18.4 L Mean Corpuscular Hemoglobin Concent 30.4 L Red Cell Distribution Width 17.2 H Platelet Count 178 Mean Platelet Volume 10.1 Neutrophils % 45.8 Lymphocytes % 36.7 Monocytes % 14.6 H Eosinophils % 1.9 Basophils % 0.5 Nucleated Red Blood Cells % 0.0 Neutrophils # 2.0 Lymphocytes # 1.6 Monocytes # 0.6 Eosinophils # 0.1 Basophils # 0.0 Nucleated Red Blood Cells # 0.0 Absolute Reticulocyte Count 0.047 Percent Reticulocyte Count 0.9 Sodium Level 140 Potassium Level 4.2 Chloride Level 103 Carbon Dioxide Level 22 Anion Gap 19 H Blood Urea Nitrogen 29 #H Creatinine 1.14 Glucose Level 117 Calcium Level 8.7 Iron Level 53 Total Iron Binding Capacity 288 Percent Iron Saturation 18 L Ferritin 430.0 H Lactate Dehydrogenase 444 Vitamin B12 Level 532 Folate 19.3 Thyroid Stimulating Hormone (TSH) 3.660 Medications Medications Current Medications Acetaminophen (Tylenol Tab) 650 mg Q4H PRN PO PAIN AND OR ELEVATED TEMP; Start 07/27/16 at 10:00 Enoxaparin Sodium (Lovenox) 40 mg DAILY SC Last administered on 07/29/16t 08:29 ; Admin Dose 40 MG; Start 07/27/16 at 10:00 Diagnostic Test (Pha) (Accucheck) 1 ea 02 XX ; Start 07/28/16 at 02:00 Miscellaneous Information 1 ea NOTE XX ; Start 07/27/16 at 10:30 Glucose (Glutose) 15 gm Q15M PRN PO DECREASED GLUCOSE; Start 07/27/16 at 10:30 Glucose (Glutose) 22.5 gm Q15M PRN PO DECREASED GLUCOSE; Start 07/27/16 at 10: 30 Dextrose (D50w Syringe) 25 ml Q15M PRN IV DECREASED GLUCOSE; Start 07/27/16 at 10:30 Dextrose (D50w Syringe) 50 ml Q15M PRN IV DECREASED GLUCOSE; Start 07/27/16 at 10:30 Glucagon (Glucagen) 1 mg Q15M PRN IM DECREASED GLUCOSE; Start 07/27/16 at 10:30 Glucose (Glutose) 15 gm Q15M PRN BUCCAL DECREASED GLUCOSE; Start 07/27/16 at 10 :30 Aspirin (Aspirin) 81 mg DAILY PO Last administered on 07/29/16 08:26; Admin Dose 81 MG; Start 07/27/16 at 12:00 Clopidogrel Bisulfate (plaVIX) 75 mg DAILY PO Last administered on 07/29/16 08 :26; Admin Dose 75 MG; Start 07/27/16 at 12:00 Tamsulosin HCl (Flomax) 0.4 mg DAILY PO Last administered on 07/29/16 08:25; Admin Dose 0.4 MG; Start 07/27/16 at 12:00 Pantoprazole (Protonix Tab) 40 mg DAILY@06 PO Last administered on 07/29/16 08 :25; Admin Dose 40 MG; Start 07/28/16 at 06:00 Atorvastatin Calcium (Lipitor) 20 mg DAILY@21 PO Last administered on 20:42; Admin Dose 20 MG; Start 07/27/16 at 21:00 Benazepril HCl (Lotensin) 10 mg DAILY PO Last administered on 07/29/16 08:26; Admin Dose 10 MG; Start 07/28/16 at 09:00 Metoprolol Succinate (Toprol Xl) 100 mg BID PO Last administered on 07/29/16 08:26; Admin Dose 100 MG; Start 07/28/16 at 21:00 Furosemide (Lasix) 20 mg DAILY IV ; Start 07/30/16 at 09:00 Levofloxacin (Levaquin) 500 mg DAILY@06 PO ; Start 07/30/16 at 06:00 TOANTHONY MD Jul 29, 2016 16:11
--- NOTE | 2016-07-29 19:00 | PN ---
Date/Time of Note Date/Time of Note DATE: 07/29/16 TIME: 18:58 Assessment/Plan VTE Prophylaxis VTE Prophylaxis Intervention: SCD's Lines/Catheters IV [facility] [place] [facility] Assessment/Plan Chief Complaint/Hosp Course ASSESSMENT AND PLAN: 1. Possible healthcare-acquired pneumonia. Continue Rocephin and Levaquin. 2. Rule out acute coronary syndrome. Cardiac enzymes negative. Dr. Brito will be following the patient in cardiology consultation. 3. Coronary artery disease, status post multiple stent placements in 2001 and 2005. Continue aspirin and Plavix. 4. Diabetes mellitus type 2. Continue patient's home medication, 1800 ADA diet , in addition to a 2 gram low fat, low cholesterol diet. Continue NovoLog per moderate algorithm sliding scale. 5. Benign prostatic hypertrophy. Continue Flomax. 6. Hypertension. Continue patient on metoprolol. 7. Obesity. Weight loss advised. 8. Anemia, Dr. White is following in gastroenterology consultation. Dr. Sigala is following in hematology consultation. Continue Lovenox for deep venous thrombosis prophylaxis and Nexium for peptic ulcer disease prophylaxis. Further recommendations based on clinical course. Plan of care discussed with Dr. Villegas. Problems: Subjective 24 Hr Interval Summary Free Text/Dictation Patient states improvement in symptoms, remains afebrile. Exam/Review of Systems Vital Signs Vitals Vital Signs Date Time Temp Pulse Resp B/P Pulse Ox O2 Delivery O2 Flow Rate FiO2 07/28/16 22:55 98.0 68 20 117/64 96 07/27/16 09:09 Room Air Intake and Output 07/28/16 07/28/16 07/29/16 15:00 23:00 07:00 Intake Total 1620 ml 450 ml Balance 1620 ml 450 ml Exam PHYSICAL ASSESSMENT: GENERAL: Well-developed, obese gentleman. Currently, he is awake, alert, in no acute distress. HEENT: Head is atraumatic, normocephalic. PERRLA. NECK: Supple. No cervical lymphadenopathy, no thyromegaly. CHEST: Lungs clear, both slightly diminished at the bases. There are no rhonchi, wheezes noted. CARDIOVASCULAR: Normal S1, S2. No murmurs, gallops, clicks, rubs noted. ABDOMEN: Protuberant, soft, nondistended, nontender. Bowel sounds present. EXTREMITIES: The patient has mild edema, 1+. No clubbing, no cyanosis. Pulses equal bilaterally 2+. SKIN: There is no rash, petechiae noted. NEUROLOGIC: The patient is awake, alert, and oriented x4 Results Result Diagram: 07/29/16 0552 07/29/16 0552 Results 24 hrs Laboratory Tests Test 07/28/16 20:30 07/29/16 02:00 07/29/16 05:52 Bedside Glucose 132 Stool Occult Blood NEGATIVE White Blood Count 4.3 L Red Blood Count 5.15 Hemoglobin 9.5 L Hematocrit 31.3 L Mean Corpuscular Volume 60.8 L Mean Corpuscular Hemoglobin 18.4 L Mean Corpuscular Hemoglobin Concent 30.4 L Red Cell Distribution Width 17.2 H Platelet Count 178 Mean Platelet Volume 10.1 Neutrophils % 45.8 Lymphocytes % 36.7 Monocytes % 14.6 H Eosinophils % 1.9 Basophils % 0.5 Nucleated Red Blood Cells % 0.0 Neutrophils # 2.0 Lymphocytes # 1.6 Monocytes # 0.6 Eosinophils # 0.1 Basophils # 0.0 Nucleated Red Blood Cells # 0.0 Absolute Reticulocyte Count 0.047 Percent Reticulocyte Count 0.9 Sodium Level 140 Potassium Level 4.2 Chloride Level 103 Carbon Dioxide Level 22 Anion Gap 19 H Blood Urea Nitrogen 29 #H Creatinine 1.14 Glucose Level 117 Calcium Level 8.7 Iron Level 53 Total Iron Binding Capacity 288 Percent Iron Saturation 18 L Ferritin 430.0 H Lactate Dehydrogenase 444 Vitamin B12 Level 532 Folate 19.3 Thyroid Stimulating Hormone (TSH) 3.660 Medications Medications Current Medications Acetaminophen (Tylenol Tab) 650 mg Q4H PRN PO PAIN AND OR ELEVATED TEMP; Start 07/27/16 at 10:00 Enoxaparin Sodium (Lovenox) 40 mg DAILY SC Last administered on 07/29/16t 08:29 ; Admin Dose 40 MG; Start 07/27/16 at 10:00 Diagnostic Test (Pha) (Accucheck) 1 ea 02 XX ; Start 07/28/16 at 02:00 Miscellaneous Information 1 ea NOTE XX ; Start 07/27/16 at 10:30 Glucose (Glutose) 15 gm Q15M PRN PO DECREASED GLUCOSE; Start 07/27/16 at 10:30 Glucose (Glutose) 22.5 gm Q15M PRN PO DECREASED GLUCOSE; Start 07/27/16 at 10: 30 Dextrose (D50w Syringe) 25 ml Q15M PRN IV DECREASED GLUCOSE; Start 07/27/16 at 10:30 Dextrose (D50w Syringe) 50 ml Q15M PRN IV DECREASED GLUCOSE; Start 07/27/16 at 10:30 Glucagon (Glucagen) 1 mg Q15M PRN IM DECREASED GLUCOSE; Start 07/27/16 at 10:30 Glucose (Glutose) 15 gm Q15M PRN BUCCAL DECREASED GLUCOSE; Start 07/27/16 at 10 :30 Aspirin (Aspirin) 81 mg DAILY PO Last administered on 07/29/16 08:26; Admin Dose 81 MG; Start 07/27/16 at 12:00 Clopidogrel Bisulfate (plaVIX) 75 mg DAILY PO Last administered on 07/29/16 08 :26; Admin Dose 75 MG; Start 07/27/16 at 12:00 Tamsulosin HCl (Flomax) 0.4 mg DAILY PO Last administered on 07/29/16 08:25; Admin Dose 0.4 MG; Start 07/27/16 at 12:00 Pantoprazole (Protonix Tab) 40 mg DAILY@06 PO Last administered on 07/29/16 08 :25; Admin Dose 40 MG; Start 07/28/16 at 06:00 Atorvastatin Calcium (Lipitor) 20 mg DAILY@21 PO Last administered on 20:42; Admin Dose 20 MG; Start 07/27/16 at 21:00 Benazepril HCl (Lotensin) 10 mg DAILY PO Last administered on 07/29/16 08:26; Admin Dose 10 MG; Start 07/28/16 at 09:00 Metoprolol Succinate (Toprol Xl) 100 mg BID PO Last administered on 07/29/16 08:26; Admin Dose 100 MG; Start 07/28/16 at 21:00 Furosemide (Lasix) 20 mg DAILY IV ; Start 07/30/16 at 09:00 Levofloxacin (Levaquin) 500 mg DAILY@06 PO ; Start 07/30/16 at 06:00 GAURAV FERRO Jul 29, 2016 19:00
[2016-07-29] MEDS: ATORVASTATIN 20 MG TAB PO SCH (21:00)
[2016-07-29 21:01] VITALS: BP 134/62; RESP 20
[2016-07-30] VITALS (12 sets, daily range): BP systolic 126–166; BP diastolic 58–74; PULSE 64–68; RESP 14–22
[2016-07-30] MEDS: ACCU-CHEK XX SCH (03:30)
[2016-07-30] MEDS: LEVOFLOXACIN 500 MG TAB PO SCH (05:38)
[2016-07-30 05:54] LABS: ADD SCAN DIFF NO
[2016-07-30 06:00] LABS: ABNORMAL IP MESSAGE 1; BASOPHILS % 0.5 % (0.0-2.0); EOSINOPHILS # 0.1 10^3/ul (0.0-0.5); EOSINOPHILS % 1.5 % (0.0-7.0); HEMATOCRIT 29.2 % (42.0-52.0); HEMOGLOBIN 9.1 g/dl (14.0-18.0); LYMPHOCYTES # 1.7 10^3/ul (0.8-2.9); LYMPHOCYTES % 41.4 % (15.0-51.0); MEAN CORPUSCULAR HEMOGLOBIN 18.7 pg (29.0-33.0); MEAN CORPUSCULAR HGB CONC 31.2 g/dl (32.0-37.0); MEAN CORPUSCULAR VOLUME 60.1 fl (82.0-101.0); MEAN PLATELET VOLUME 10.4 fl (7.4-10.4); MONOCYTE # 0.6 10^3/ul (0.3-0.9); MONOCYTES % 15.3 % (0.0-11.0); NEUTROPHIL # 1.7 10^3/ul (1.6-7.5); NEUTROPHILS % 41.1 % (39.0-77.0); PLATELET COUNT 155 10^3/UL (140-415); RED BLOOD COUNT 4.86 10^6/ul (4.70-6.10); RED CELL DISTRIBUTION WIDTH 17.1 % (11.5-14.5); WHITE BLOOD COUNT 4.1 10^3/ul (4.8-10.8)
[2016-07-30 06:29] LABS: POTASSIUM 4.2 mmol/L (3.5-5.1)
[2016-07-30 06:32] LABS: CALCIUM 8.6 mg/dl (8.4-10.2)
[2016-07-30] MEDS: LINAGLIPTIN 5 MG TABLET PO SCH ×2 (08:00→16:19)
[2016-07-30] MEDS: metFORMIN 500 MG TAB PO SCH ×2 (08:00→16:19)
[2016-07-30] MEDS: ENOXAPARIN 40 MG/0.4 ML SYG SC SCH (08:18)
[2016-07-30] MEDS: ASPIRIN 81 MG TAB PO SCH (08:18)
[2016-07-30] MEDS: CLOPIDOGREL 75 MG TAB PO SCH (08:18)
[2016-07-30] MEDS: BENAZEPRIL 10 MG TAB PO SCH (08:18)
[2016-07-30] MEDS: METOPROLOL (XL) 100 MG TAB PO SCH ×2 (08:18→20:56)
[2016-07-30] MEDS: TAMSULOSIN (SR) 0.4 MG CAP PO SCH (08:18)
[2016-07-30] MEDS: FUROSEMIDE 20 MG INJ IV SCH (08:28)
[2016-07-30] MEDS ORDERED: PROPOFOL 40 ML ONE (13:36)
[2016-07-30] MEDS ORDERED: LIDOCAINE 2% (SDV) 5 ML INJ ONE (13:36)
--- NOTE | 2016-07-30 13:56 | CONS ---
Date/Time of Note Date/Time of Note DATE: 07/30/16 TIME: 13:53 Assessment/Plan Assessment/Plan Chief Complaint/Hosp Course IMPRESSION: 1. Congestive heart failure exacerbation, diastolic by previous echo 2016. 2. Hypertension-improved 3. History of coronary artery disease. 4. Fevers. 5. Possible pneumonia. 6. Anemia. 7. Borderline urinary tract infection. Recc: -Continue asa/plavix -Continue toprol/benazepril and f/u BP after receiving -Continue statin -Continue abx's/bronchodilators/steroids -Continue gentle lasix diuresis and f/u volume status closely -For endoscopy today Problems: Consultation Date/Type/Reason Admit Date/Time Jul 27, 2016 at 18:28 Initial Consult Date 07/28/2016 Type of Consultation: Cardiology Reason for Consultation CHF Referring Provider: DANISHA RAMACHANDRAN MD Exam/Review of Systems Vital Signs Vitals Vital Signs Date Time Temp Pulse Resp B/P Pulse Ox O2 Delivery O2 Flow Rate FiO2 07/30/16 13:41 98.0 65 14 166/74 98 Room Air Intake and Output 07/29/16 07/29/16 07/30/16 14:59 22:59 06:59 Intake Total 200 ml 400 ml 1000 ml Balance 200 ml 400 ml 1000 ml Exam Review of Systems: CONSTITUTIONAL: No fevers, chills. PULMONARY: No sob CARDIOVASCULAR: No chest pain/palpitations GASTROINTESTINAL: No nausea/vomiting. GENITOURINARY: No hematuria/dysuria. MUSCULOSKELETAL: No myagias/arthalgias. PSYCHIATRIC: The patient denies depression. NEUROLOGIC: No weakness Constitutional: alert, oriented Psych: no complaints ENMT: mucosa pink and moist Neck: jvd (9 cm water), supple Respiratory: diminished breath sounds (at bases/B) Cardiovascular: regular rate and rhythm Gastrointestinal: non-tender, soft Musculoskeletal: muscle tone (normal) Extremities: edema (none) Neurological: other (No focal deficits) Results Result Diagram: 07/30/16 0519 07/30/16 0519 Results 24 hrs Laboratory Tests Test 07/29/16 20:36 07/30/16 05:19 Bedside Glucose 109 White Blood Count 4.1 L Red Blood Count 4.86 Hemoglobin 9.1 L Hematocrit 29.2 L Mean Corpuscular Volume 60.1 L Mean Corpuscular Hemoglobin 18.7 L Mean Corpuscular Hemoglobin Concent 31.2 L Red Cell Distribution Width 17.1 H Platelet Count 155 Mean Platelet Volume 10.4 Neutrophils % 41.1 Lymphocytes % 41.4 Monocytes % 15.3 H Eosinophils % 1.5 Basophils % 0.5 Nucleated Red Blood Cells % 0.0 Neutrophils # 1.7 Lymphocytes # 1.7 Monocytes # 0.6 Eosinophils # 0.1 Basophils # 0.0 Nucleated Red Blood Cells # 0.0 Sodium Level 141 Potassium Level 4.2 Chloride Level 102 Carbon Dioxide Level 25 Anion Gap 18 H Blood Urea Nitrogen 25 H Creatinine 1.00 Glucose Level 96 Calcium Level 8.6 Medications Medications Current Medications Acetaminophen (Tylenol Tab) 650 mg Q4H PRN PO PAIN AND OR ELEVATED TEMP; Start 07/27/16 at 10:00 Enoxaparin Sodium (Lovenox) 40 mg DAILY SC Last administered on 07/29/16 08:29 ; Admin Dose 40 MG; Start 07/27/16 at 10:00 Diagnostic Test (Pha) (Accucheck) 1 ea 02 XX ; Start 07/28/16 at 02:00 Miscellaneous Information 1 ea NOTE XX ; Start 07/27/16 at 10:30 Glucose (Glutose) 15 gm Q15M PRN PO DECREASED GLUCOSE; Start 07/27/16 at 10:30 Glucose (Glutose) 22.5 gm Q15M PRN PO DECREASED GLUCOSE; Start 07/27/16 at 10: 30 Dextrose (D50w Syringe) 25 ml Q15M PRN IV DECREASED GLUCOSE; Start 07/27/16 at 10:30 Dextrose (D50w Syringe) 50 ml Q15M PRN IV DECREASED GLUCOSE; Start 07/27/16 at 10:30 Glucagon (Glucagen) 1 mg Q15M PRN IM DECREASED GLUCOSE; Start 07/27/16 at 10:30 Glucose (Glutose) 15 gm Q15M PRN BUCCAL DECREASED GLUCOSE; Start 07/27/16 at 10 :30 Aspirin (Aspirin) 81 mg DAILY PO Last administered on 07/29/16 08:26; Admin Dose 81 MG; Start 07/27/16 at 12:00 Clopidogrel Bisulfate (plaVIX) 75 mg DAILY PO Last administered on 07/29/16 08 :26; Admin Dose 75 MG; Start 07/27/16 at 12:00 Tamsulosin HCl (Flomax) 0.4 mg DAILY PO Last administered on 07/29/16 08:25; Admin Dose 0.4 MG; Start 07/27/16 at 12:00 Pantoprazole (Protonix Tab) 40 mg DAILY@06 PO Last administered on 07/29/16 08 :25; Admin Dose 40 MG; Start 07/28/16 at 06:00 Atorvastatin Calcium (Lipitor) 20 mg DAILY@21 PO Last administered on 20:42; Admin Dose 20 MG; Start 07/27/16 at 21:00 Benazepril HCl (Lotensin) 10 mg DAILY PO Last administered on 07/29/16 08:26; Admin Dose 10 MG; Start 07/28/16 at 09:00 Metoprolol Succinate (Toprol Xl) 100 mg BID PO Last administered on 07/29/16 21:54; Admin Dose 100 MG; Start 07/28/16 at 21:00 Furosemide (Lasix) 20 mg DAILY IV Last administered on 07/30/16 08:28; Admin Dose 20 MG; Start 07/30/16 at 09:00 Levofloxacin (Levaquin) 500 mg DAILY@06 PO ; Start 07/30/16 at 06:00 ZARINA JAVED Jul 30, 2016 13:56
--- NOTE | 2016-07-30 14:21 | CONS ---
Date/Time of Note Date/Time of Note DATE: 07/30/16 TIME: 14:19 Assessment/Plan Assessment/Plan Chief Complaint/Hosp Course SUBJECTIVE: Patient is alert, feels good. No fevers. ANTIMICROBIALS: Levaquin. PHYSICAL EXAMINATION: GENERAL: This is a well-developed, obese, elderly man who is alert, in no distress. HEENT: Head atraumatic, normocephalic. Sclerae anicteric. Buccal mucosa pink. NECK: Supple, trachea midline. CHEST: Rise symmetrical. Breath sounds clear. HEART: S1, S2. ABDOMEN: Soft, bowel tones present. EXTREMITIES: Without cyanosis or edema. ASSESSMENT: 1. Community-acquired pneumonia. 2. Coronary artery disease with history of stent placement. 3. Diabetes. 4. Benign prostatic hypertrophy. 5. Anemia. PLAN: The patient remains stable, pending EGD. We will continue him on oral Levaquin DW staff/pt Problems: Consultation Date/Type/Reason Admit Date/Time Jul 27, 2016 at 18:28 Initial Consult Date 07/29/16 Type of Consultation: ID Referring Provider: DANISHA RAMACHANDRAN MD Exam/Review of Systems Vital Signs Vitals Vital Signs Date Time Temp Pulse Resp B/P Pulse Ox O2 Delivery O2 Flow Rate FiO2 07/30/16 13:41 98.0 65 14 166/74 98 Room Air Intake and Output 07/29/16 07/29/16 07/30/16 15:00 23:00 07:00 Intake Total 200 ml 400 ml 1000 ml Balance 200 ml 400 ml 1000 ml Results Result Diagram: 07/30/16 0519 07/30/16 0519 Results 24 hrs Laboratory Tests Test 07/29/16 20:36 07/30/16 05:19 Bedside Glucose 109 White Blood Count 4.1 L Red Blood Count 4.86 Hemoglobin 9.1 L Hematocrit 29.2 L Mean Corpuscular Volume 60.1 L Mean Corpuscular Hemoglobin 18.7 L Mean Corpuscular Hemoglobin Concent 31.2 L Red Cell Distribution Width 17.1 H Platelet Count 155 Mean Platelet Volume 10.4 Neutrophils % 41.1 Lymphocytes % 41.4 Monocytes % 15.3 H Eosinophils % 1.5 Basophils % 0.5 Nucleated Red Blood Cells % 0.0 Neutrophils # 1.7 Lymphocytes # 1.7 Monocytes # 0.6 Eosinophils # 0.1 Basophils # 0.0 Nucleated Red Blood Cells # 0.0 Sodium Level 141 Potassium Level 4.2 Chloride Level 102 Carbon Dioxide Level 25 Anion Gap 18 H Blood Urea Nitrogen 25 H Creatinine 1.00 Glucose Level 96 Calcium Level 8.6 Medications Medications Current Medications Acetaminophen (Tylenol Tab) 650 mg Q4H PRN PO PAIN AND OR ELEVATED TEMP; Start 07/27/16 at 10:00 Enoxaparin Sodium (Lovenox) 40 mg DAILY SC Last administered on 07/29/16 08:29 ; Admin Dose 40 MG; Start 07/27/16 at 10:00 Diagnostic Test (Pha) (Accucheck) 1 ea 02 XX ; Start 07/28/16 at 02:00 Miscellaneous Information 1 ea NOTE XX ; Start 07/27/16 at 10:30 Glucose (Glutose) 15 gm Q15M PRN PO DECREASED GLUCOSE; Start 07/27/16 at 10:30 Glucose (Glutose) 22.5 gm Q15M PRN PO DECREASED GLUCOSE; Start 07/27/16 at 10: 30 Dextrose (D50w Syringe) 25 ml Q15M PRN IV DECREASED GLUCOSE; Start 07/27/16 at 10:30 Dextrose (D50w Syringe) 50 ml Q15M PRN IV DECREASED GLUCOSE; Start 07/27/16 at 10:30 Glucagon (Glucagen) 1 mg Q15M PRN IM DECREASED GLUCOSE; Start 07/27/16 at 10:30 Glucose (Glutose) 15 gm Q15M PRN BUCCAL DECREASED GLUCOSE; Start 07/27/16 at 10 :30 Aspirin (Aspirin) 81 mg DAILY PO Last administered on 07/29/16 08:26; Admin Dose 81 MG; Start 07/27/16 at 12:00 Clopidogrel Bisulfate (plaVIX) 75 mg DAILY PO Last administered on 07/29/16 08 :26; Admin Dose 75 MG; Start 07/27/16 at 12:00 Tamsulosin HCl (Flomax) 0.4 mg DAILY PO Last administered on 07/29/16 08:25; Admin Dose 0.4 MG; Start 07/27/16 at 12:00 Pantoprazole (Protonix Tab) 40 mg DAILY@06 PO Last administered on 07/29/16 08 :25; Admin Dose 40 MG; Start 07/28/16 at 06:00 Atorvastatin Calcium (Lipitor) 20 mg DAILY@21 PO Last administered on 20:42; Admin Dose 20 MG; Start 07/27/16 at 21:00 Benazepril HCl (Lotensin) 10 mg DAILY PO Last administered on 07/29/16 08:26; Admin Dose 10 MG; Start 07/28/16 at 09:00 Metoprolol Succinate (Toprol Xl) 100 mg BID PO Last administered on 07/29/16 21:54; Admin Dose 100 MG; Start 07/28/16 at 21:00 Furosemide (Lasix) 20 mg DAILY IV Last administered on 07/30/16 08:28; Admin Dose 20 MG; Start 07/30/16 at 09:00 Levofloxacin (Levaquin) 500 mg DAILY@06 PO ; Start 07/30/16 at 06:00 IMMANUEL MEAD NP Jul 30, 2016 14:21
--- NOTE | 2016-07-30 14:27 | GILP ---
DATE OF PROCEDURE: PROCEDURE: Esophagogastroduodenoscopy. PREOPERATIVE DIAGNOSIS: Patient presenting with a history of difficulty after having severe anemia. Rule out peptic ulcer disease, gastritis, etc. POSTOPERATIVE DIAGNOSES: Mild reflux esophagitis. Faint esophageal varix noted in the distal esophag us, but not very prominent varices. Mild erythema noted in the fundus of the stomach. Duodenum dante wed evidence of several areas of erythema. The old scar noted in the duodenum indicating perhaps a duodenal ulcer. At this time photographs were obtained. Biopsies were done from the antrum, the le sser curvature and the fundus to rule out H. pylori infection. The scope at this time was withdrawn and no additional abnormalities were detected and the procedure was terminated. PLAN: Recommend proton pump inhibitor therapy. Wait for the pathology report. Dictated By: MELISSA VELASCO MD NC/NTS Conf#: [id number] DID#: [id number] CC: DANISHA RAMACHANDRAN MD;*EndCC*
[2016-07-30] MEDS ORDERED: METOCLOPRAMIDE 10 MG INJ IV PRN (14:30)
[2016-07-30] MEDS ORDERED: FENTAnyl 50 MCG/ML VIAL IV PRN ×3 (14:30)
[2016-07-30] MEDS ORDERED: OXYCODONE/ACETAMINOPHEN (5/325) TAB PO PRN ×2 (14:30)
[2016-07-30] MEDS ORDERED: DIPHENHYDRAMINE 50 MG INJ IV PRN (14:30)
[2016-07-30] MEDS ORDERED: EPHEDrine SULFATE 50 MG/5 ML SYG IV PRN (14:30)
[2016-07-30] MEDS ORDERED: ONDANSETRON 4 MG INJ IV PRN (14:30)
--- NOTE | 2016-07-30 15:33 | GILP ---
DATE OF PROCEDURE: PROCEDURE: Colonoscopy. SURGEON: Melissa White MD PREOPERATIVE DIAGNOSIS: A patient presenting with history of severe anemia, rule out colorectal emilia plasm, arteriovenous malformation, diverticulosis, etc. POSTOPERATIVE DIAGNOSES: 1. A 5 mm polyp noted located at 30 cm from the anus. This was removed with a cold biopsy forceps. 2. Diverticulosis. 3. Hemorrhoids. DESCRIPTION OF PROCEDURE: After informed written consent was obtained, the patient was asked to lie on the left lateral side. Intravenous anesthesia was given by anesthesiologist, MARITZA Funes. When the patient became somnolent, the Olympus video colonoscope was introduced into the rectum and scope was advanced all the way to the cecum. The entire colon appeared perfectly normal with no muc osal abnormality. A 5 mm flat polyp was noted located at 30 cm from the anus. This polyp was biops ied and removed. A few scattered diverticula noted. They are small in size, they are not severe. No bleeding noted. Cecum appeared normal. Endoscope was withdrawn and minimal internal and minimal external hemorrhoids were noted and the procedure was terminated. PLAN: Recommend wait for the pathology report. Dictated By: MELISSA FARIAS/NTS Conf#: [id number] DID#: [id number] CC: MELISSA WHITE MD; DANISHA RAMACHANDRAN MD;*EndCC*
--- NOTE | 2016-07-30 15:39 | CONS ---
Date/Time of Note Date/Time of Note DATE: 07/30/16 TIME: 15:37 Assessment/Plan Assessment/Plan Chief Complaint/Hosp Course The patient is a 71 year old male with diabetes, BPH, CAD, with community- acquired pneumonia with microcytic anemia and elevated RDW. - s/p EGD today showing mild reflux esophagitis. Faint esophageal varix noted in the distal esophagus, but not very prominent varices. Mild erythema noted in the fundus of the stomach. Duodenum showed evidence of several areas of erythema. The old scar noted in the duodenum indicating perhaps a duodenal ulcer. At this time photographs were obtained. Biopsies were done from the antrum, the lesser curvature and the fundus to rule out H. pylori infection. PPI therapy per GI. - Hgb fairly stable in the 9s - f/u path report. Appreciate GI assistance. - Iron panel more suggestive of anemia of chronic inflammation though cannot rule out component of iron deficiency, especially in the setting of microcytic anemia with elevated RDW. - LDH normal, B12/folate WNL, retic count inappropriately low - Will continue to follow Problems: Consultation Date/Type/Reason Admit Date/Time Jul 27, 2016 at 18:28 Initial Consult Date 07/29/16 Type of Consultation: Hematology Referring Provider: DANISHA RAMACHANDRAN MD 24 HR Interval Summary Free Text/Dictation No complaints. Walking hallways without issues. Exam/Review of Systems Vital Signs Vitals Vital Signs Date Time Temp Pulse Resp B/P Pulse Ox O2 Delivery O2 Flow Rate FiO2 07/30/16 15:00 66 22 135/67 97 Room Air 07/30/16 14:26 97.9 Intake and Output 07/29/16 07/29/16 07/30/16 15:00 23:00 07:00 Intake Total 200 ml 400 ml 1000 ml Balance 200 ml 400 ml 1000 ml Exam Constitutional: alert, oriented Psych: no complaints Head: normocephalic Eyes: nl conjunctiva Neck: supple Respiratory: clear to auscultation Cardiovascular: regular rate and rhythm Gastrointestinal: non-tender, soft Musculoskeletal: nl extremities to inspection Results Result Diagram: 07/30/16 0507/30/16518 Results 24 hrs Laboratory Tests Test 07/29/16 20:36 07/30/16 05:19 Bedside Glucose 109 White Blood Count 4.1 L Red Blood Count 4.86 Hemoglobin 9.1 L Hematocrit 29.2 L Mean Corpuscular Volume 60.1 L Mean Corpuscular Hemoglobin 18.7 L Mean Corpuscular Hemoglobin Concent 31.2 L Red Cell Distribution Width 17.1 H Platelet Count 155 Mean Platelet Volume 10.4 Neutrophils % 41.1 Lymphocytes % 41.4 Monocytes % 15.3 H Eosinophils % 1.5 Basophils % 0.5 Nucleated Red Blood Cells % 0.0 Neutrophils # 1.7 Lymphocytes # 1.7 Monocytes # 0.6 Eosinophils # 0.1 Basophils # 0.0 Nucleated Red Blood Cells # 0.0 Sodium Level 141 Potassium Level 4.2 Chloride Level 102 Carbon Dioxide Level 25 Anion Gap 18 H Blood Urea Nitrogen 25 H Creatinine 1.00 Glucose Level 96 Calcium Level 8.6 Medications Medications Current Medications Acetaminophen (Tylenol Tab) 650 mg Q4H PRN PO PAIN AND OR ELEVATED TEMP; Start 07/27/16 at 10:00 Enoxaparin Sodium (Lovenox) 40 mg DAILY SC Last administered on 07/29/16 08:29 ; Admin Dose 40 MG; Start 07/27/16 at 10:00 Diagnostic Test (Pha) (Accucheck) 1 ea 02 XX ; Start 07/28/16 at 02:00 Miscellaneous Information 1 ea NOTE XX ; Start 07/27/16 at 10:30 Glucose (Glutose) 15 gm Q15M PRN PO DECREASED GLUCOSE; Start 07/27/16 at 10:30 Glucose (Glutose) 22.5 gm Q15M PRN PO DECREASED GLUCOSE; Start 07/27/16 at 10: 30 Dextrose (D50w Syringe) 25 ml Q15M PRN IV DECREASED GLUCOSE; Start 07/27/16 at 10:30 Dextrose (D50w Syringe) 50 ml Q15M PRN IV DECREASED GLUCOSE; Start 07/27/16 at 10:30 Glucagon (Glucagen) 1 mg Q15M PRN IM DECREASED GLUCOSE; Start 07/27/16 at 10:30 Glucose (Glutose) 15 gm Q15M PRN BUCCAL DECREASED GLUCOSE; Start 07/27/16 at 10 :30 Aspirin (Aspirin) 81 mg DAILY PO Last administered on 07/29/16 08:26; Admin Dose 81 MG; Start 07/27/16 at 12:00 Clopidogrel Bisulfate (plaVIX) 75 mg DAILY PO Last administered on 07/29/16 08 :26; Admin Dose 75 MG; Start 07/27/16 at 12:00 Tamsulosin HCl (Flomax) 0.4 mg DAILY PO Last administered on 07/29/16 08:25; Admin Dose 0.4 MG; Start 07/27/16 at 12:00 Pantoprazole (Protonix Tab) 40 mg DAILY@06 PO Last administered on 07/29/16 08 :25; Admin Dose 40 MG; Start 07/28/16 at 06:00 Atorvastatin Calcium (Lipitor) 20 mg DAILY@21 PO Last administered on 20:42; Admin Dose 20 MG; Start 07/27/16 at 21:00 Benazepril HCl (Lotensin) 10 mg DAILY PO Last administered on 07/29/16 08:26; Admin Dose 10 MG; Start 07/28/16 at 09:00 Metoprolol Succinate (Toprol Xl) 100 mg BID PO Last administered on 07/29/16 21:54; Admin Dose 100 MG; Start 07/28/16 at 21:00 Furosemide (Lasix) 20 mg DAILY IV Last administered on 07/30/16 08:28; Admin Dose 20 MG; Start 07/30/16 at 09:00 Levofloxacin (Levaquin) 500 mg DAILY@06 PO ; Start 07/30/16 at 06:00 TOANTHONY MD Jul 30, 2016 15:39
--- NOTE | 2016-07-30 20:24 | PN ---
Date/Time of Note Date/Time of Note DATE: 07/30/16 TIME: 20:23 Assessment/Plan VTE Prophylaxis VTE Prophylaxis Intervention: other Lines/Catheters IV [facility] Saline [facility] Assessment/Plan Assessment/Plan 1. Possible healthcare-acquired pneumonia. Continue Rocephin and Levaquin. 2. Rule out acute coronary syndrome. Cardiac enzymes negative. Dr. Brito will be following the patient in cardiology consultation. 3. Coronary artery disease, status post multiple stent placements in 2001 and 2005. Continue aspirin and Plavix. 4. Diabetes mellitus type 2. Continue patient's home medication, 1800 ADA diet , in addition to a 2 gram low fat, low cholesterol diet. Continue NovoLog per moderate algorithm sliding scale. 5. Benign prostatic hypertrophy. Continue Flomax. 6. Hypertension. Continue patient on metoprolol. 7. Obesity. Weight loss advised. 8. Anemia, Dr. White is following in gastroenterology consultation. Dr. Sigala is following in hematology consultation. Continue Lovenox for deep venous thrombosis prophylaxis and Nexium for peptic ulcer disease prophylaxis. Further recommendations based on clinical course. Plan of care discussed with Dr. Villegas. Subjective 24 Hr Interval Summary Constitutional: improved Exam/Review of Systems Vital Signs Vitals Vital Signs Date Time Temp Pulse Resp B/P Pulse Ox O2 Delivery O2 Flow Rate FiO2 07/30/16 15:00 66 22 135/67 97 Room Air 07/30/16 14:26 97.9 Intake and Output 07/29/16 07/29/16 07/30/16 15:00 23:00 07:00 Intake Total 200 ml 400 ml 1000 ml Balance 200 ml 400 ml 1000 ml Exam Constitutional: alert, oriented Psych: nl mood/affect Eyes: EOMI, nl sclera ENMT: nl external ears & nose Respiratory: clear to auscultation Cardiovascular: nl pulses Gastrointestinal: non-tender, soft Musculoskeletal: nl extremities to inspection Extremities: normal pulses Neurological: nl mental status, nl speech Skin: nl turgor Lymph: nontender Results Result Diagram: 07/30/1651807/30/16518 Results 24 hrs Laboratory Tests Test 07/29/16 20:36 07/30/16 05:19 Bedside Glucose 109 White Blood Count 4.1 L Red Blood Count 4.86 Hemoglobin 9.1 L Hematocrit 29.2 L Mean Corpuscular Volume 60.1 L Mean Corpuscular Hemoglobin 18.7 L Mean Corpuscular Hemoglobin Concent 31.2 L Red Cell Distribution Width 17.1 H Platelet Count 155 Mean Platelet Volume 10.4 Neutrophils % 41.1 Lymphocytes % 41.4 Monocytes % 15.3 H Eosinophils % 1.5 Basophils % 0.5 Nucleated Red Blood Cells % 0.0 Neutrophils # 1.7 Lymphocytes # 1.7 Monocytes # 0.6 Eosinophils # 0.1 Basophils # 0.0 Nucleated Red Blood Cells # 0.0 Sodium Level 141 Potassium Level 4.2 Chloride Level 102 Carbon Dioxide Level 25 Anion Gap 18 H Blood Urea Nitrogen 25 H Creatinine 1.00 Glucose Level 96 Calcium Level 8.6 Medications Medications Current Medications Acetaminophen (Tylenol Tab) 650 mg Q4H PRN PO PAIN AND OR ELEVATED TEMP; Start 07/27/16 at 10:00 Enoxaparin Sodium (Lovenox) 40 mg DAILY SC Last administered on 07/29/16 08:29 ; Admin Dose 40 MG; Start 07/27/16 at 10:00 Diagnostic Test (Pha) (Accucheck) 1 ea 02 XX ; Start 07/28/16 at 02:00 Miscellaneous Information 1 ea NOTE XX ; Start 07/27/16 at 10:30 Glucose (Glutose) 15 gm Q15M PRN PO DECREASED GLUCOSE; Start 07/27/16 at 10:30 Glucose (Glutose) 22.5 gm Q15M PRN PO DECREASED GLUCOSE; Start 07/27/16 at 10: 30 Dextrose (D50w Syringe) 25 ml Q15M PRN IV DECREASED GLUCOSE; Start 07/27/16 at 10:30 Dextrose (D50w Syringe) 50 ml Q15M PRN IV DECREASED GLUCOSE; Start 07/27/16 at 10:30 Glucagon (Glucagen) 1 mg Q15M PRN IM DECREASED GLUCOSE; Start 07/27/16 at 10:30 Glucose (Glutose) 15 gm Q15M PRN BUCCAL DECREASED GLUCOSE; Start 07/27/16 at 10 :30 Aspirin (Aspirin) 81 mg DAILY PO Last administered on 07/29/16 08:26; Admin Dose 81 MG; Start 07/27/16 at 12:00 Clopidogrel Bisulfate (plaVIX) 75 mg DAILY PO Last administered on 07/29/16 08 :26; Admin Dose 75 MG; Start 07/27/16 at 12:00 Tamsulosin HCl (Flomax) 0.4 mg DAILY PO Last administered on 07/29/16 08:25; Admin Dose 0.4 MG; Start 07/27/16 at 12:00 Pantoprazole (Protonix Tab) 40 mg DAILY@06 PO Last administered on 07/29/16 08 :25; Admin Dose 40 MG; Start 07/28/16 at 06:00 Atorvastatin Calcium (Lipitor) 20 mg DAILY@21 PO Last administered on 20:42; Admin Dose 20 MG; Start 07/27/16 at 21:00 Benazepril HCl (Lotensin) 10 mg DAILY PO Last administered on 07/29/16 08:26; Admin Dose 10 MG; Start 07/28/16 at 09:00 Metoprolol Succinate (Toprol Xl) 100 mg BID PO Last administered on 07/29/16 21:54; Admin Dose 100 MG; Start 07/28/16 at 21:00 Furosemide (Lasix) 20 mg DAILY IV Last administered on 07/30/16 08:28; Admin Dose 20 MG; Start 07/30/16 at 09:00 Levofloxacin (Levaquin) 500 mg DAILY@06 PO ; Start 07/30/16 at 06:00 CHAYO HERBERT Jul 30, 2016 20:24 CHAYO HERBERT Jul 30, 2016 20:24
[2016-07-30] MEDS: ATORVASTATIN 20 MG TAB PO SCH (20:56)
[2016-07-31] MEDS: ACCU-CHEK XX SCH (02:00)
[2016-07-31] MEDS: LEVOFLOXACIN 500 MG TAB PO SCH (05:09)
[2016-07-31] MEDS: PANTOPRAZOLE (EC) 40 MG TAB PO SCH (05:09)
[2016-07-31 05:52] LABS: ADD SCAN DIFF NO
[2016-07-31 06:09] LABS: ABNORMAL IP MESSAGE 1; HEMATOCRIT 30.5 % (42.0-52.0); HEMOGLOBIN 9.4 g/dl (14.0-18.0); MEAN CORPUSCULAR HEMOGLOBIN 18.6 pg (29.0-33.0); MEAN CORPUSCULAR HGB CONC 30.8 g/dl (32.0-37.0); MEAN CORPUSCULAR VOLUME 60.3 fl (82.0-101.0); MEAN PLATELET VOLUME 10.6 fl (7.4-10.4); PLATELET COUNT 170 10^3/UL (140-415); RED BLOOD COUNT 5.06 10^6/ul (4.70-6.10); RED CELL DISTRIBUTION WIDTH 17.2 % (11.5-14.5); WHITE BLOOD COUNT 4.3 10^3/ul (4.8-10.8)
[2016-07-31 06:16] LABS: POTASSIUM 3.6 mmol/L (3.5-5.1)
[2016-07-31 06:18] LABS: CREATININE 1.05 mg/dl (0.61-1.24)
[2016-07-31 06:19] LABS: CALCIUM 8.5 mg/dl (8.4-10.2)
[2016-07-31 08:35] VITALS: BP 139/64; RESP 16
[2016-07-31] MEDS: BENAZEPRIL 10 MG TAB PO SCH (09:21)
[2016-07-31] MEDS: LINAGLIPTIN 5 MG TABLET PO SCH ×2 (09:21→17:43)
[2016-07-31] MEDS: TAMSULOSIN (SR) 0.4 MG CAP PO SCH (09:21)
[2016-07-31] MEDS: CLOPIDOGREL 75 MG TAB PO SCH (09:21)
[2016-07-31] MEDS: metFORMIN 500 MG TAB PO SCH (09:21)
[2016-07-31] MEDS: METOPROLOL (XL) 100 MG TAB PO SCH (09:21)
[2016-07-31] MEDS: ASPIRIN 81 MG TAB PO SCH (09:21)
[2016-07-31] MEDS: ENOXAPARIN 40 MG/0.4 ML SYG SC SCH (09:23)
[2016-07-31] MEDS: FUROSEMIDE 20 MG INJ IV SCH (09:24)
[2016-07-31 11:21] LABS: BASOPHIL # 0.1 10^3/ul (0.0-0.1); EOSINOPHILS # 0.1 10^3/ul (0.0-0.5); LYMPHOCYTES # 1.6 10^3/ul (0.8-2.9); MONOCYTE # 0.3 10^3/ul (0.3-0.9)
[2016-07-31] MEDS ORDERED: BARIUM SULF 2% 450 ML BTL (BERRY SMOOTHIE) PO ONE (12:30)
--- NOTE | 2016-07-31 12:55 | CONS ---
Date/Time of Note Date/Time of Note DATE: 07/31/16 TIME: 12:54 Assessment/Plan Assessment/Plan Chief Complaint/Hosp Course SUBJECTIVE: Patient is alert, feels good. No fevers. ANTIMICROBIALS: Levaquin. PHYSICAL EXAMINATION: GENERAL: This is a well-developed, obese, elderly man who is alert, in no distress. HEENT: Head atraumatic, normocephalic. Sclerae anicteric. Buccal mucosa pink. NECK: Supple, trachea midline. CHEST: Rise symmetrical. Breath sounds clear. HEART: S1, S2. ABDOMEN: Soft, bowel tones present. EXTREMITIES: Without cyanosis or edema. ASSESSMENT: 1. Community-acquired pneumonia. 2. Coronary artery disease with history of stent placement. 3. Diabetes. 4. Benign prostatic hypertrophy. 5. Anemia===> s/p EGD/colonoscopy. PLAN: The patient remains stable, ok dc on oral Levaquin for 5 more days DW staff/pt Problems: Consultation Date/Type/Reason Admit Date/Time Jul 27, 2016 at 18:28 Initial Consult Date 07/29/16 Type of Consultation: id Referring Provider: DANISHA RAMACHANDRAN MD Exam/Review of Systems Vital Signs Vitals Vital Signs Date Time Temp Pulse Resp B/P Pulse Ox O2 Delivery O2 Flow Rate FiO2 07/31/16 08:35 99.0 63 16 139/64 95 07/30/16 15:00 Room Air Intake and Output 07/30/16 07/30/16 07/31/16 15:00 23:00 07:00 Intake Total 640 ml 360 ml Balance 640 ml 360 ml Results Result Diagram: 07/31/16 0536 07/31/16 0536 Results 24 hrs Laboratory Tests Test 07/31/16 05:36 White Blood Count 4.3 L Red Blood Count 5.06 Hemoglobin 9.4 L Hematocrit 30.5 L Mean Corpuscular Volume 60.3 L Mean Corpuscular Hemoglobin 18.6 L Mean Corpuscular Hemoglobin Concent 30.8 L Red Cell Distribution Width 17.2 H Platelet Count 170 Mean Platelet Volume 10.6 H Neutrophils % 47.0 Band Neutrophils % 4.0 Lymphocytes % 38.0 Monocytes % 7.0 Eosinophils % 2.0 Basophils % 2.0 Neutrophils # 2.0 Lymphocytes # 1.6 Monocytes # 0.3 Eosinophils # 0.1 Basophils # 0.1 Sodium Level 142 Potassium Level 3.6 Chloride Level 102 Carbon Dioxide Level 22 Anion Gap 22 H Blood Urea Nitrogen 26 H Creatinine 1.05 Glucose Level 190 Calcium Level 8.5 Medications Medications Current Medications Acetaminophen (Tylenol Tab) 650 mg Q4H PRN PO PAIN AND OR ELEVATED TEMP; Start 07/27/16 at 10:00 Enoxaparin Sodium (Lovenox) 40 mg DAILY SC Last administered on 07/31/16 09:23 ; Admin Dose 40 MG; Start 07/27/16 at 10:00 Diagnostic Test (Pha) (Accucheck) 1 ea 02 XX ; Start 07/28/16 at 02:00 Miscellaneous Information 1 ea NOTE XX ; Start 07/27/16 at 10:30 Glucose (Glutose) 15 gm Q15M PRN PO DECREASED GLUCOSE; Start 07/27/16 at 10:30 Glucose (Glutose) 22.5 gm Q15M PRN PO DECREASED GLUCOSE; Start 07/27/16 at 10: 30 Dextrose (D50w Syringe) 25 ml Q15M PRN IV DECREASED GLUCOSE; Start 07/27/16 at 10:30 Dextrose (D50w Syringe) 50 ml Q15M PRN IV DECREASED GLUCOSE; Start 07/27/16 at 10:30 Glucagon (Glucagen) 1 mg Q15M PRN IM DECREASED GLUCOSE; Start 07/27/16 at 10:30 Glucose (Glutose) 15 gm Q15M PRN BUCCAL DECREASED GLUCOSE; Start 07/27/16 at 10 :30 Aspirin (Aspirin) 81 mg DAILY PO Last administered on 07/31/16 09:21; Admin Dose 81 MG; Start 07/27/16 at 12:00 Clopidogrel Bisulfate (plaVIX) 75 mg DAILY PO Last administered on 07/31/16 09 :21; Admin Dose 75 MG; Start 07/27/16 at 12:00 Tamsulosin HCl (Flomax) 0.4 mg DAILY PO Last administered on 07/31/16 09:21; Admin Dose 0.4 MG; Start 07/27/16 at 12:00 Pantoprazole (Protonix Tab) 40 mg DAILY@06 PO Last administered on 07/31/16 05 :09; Admin Dose 40 MG; Start 07/28/16 at 06:00 Atorvastatin Calcium (Lipitor) 20 mg DAILY@21 PO Last administered on 20:56; Admin Dose 20 MG; Start 07/27/16 at 21:00 Benazepril HCl (Lotensin) 10 mg DAILY PO Last administered on 07/31/16 09:21; Admin Dose 10 MG; Start 07/28/16 at 09:00 Metoprolol Succinate (Toprol Xl) 100 mg BID PO Last administered on 07/31/16 09:21; Admin Dose 100 MG; Start 07/28/16 at 21:00 Furosemide (Lasix) 20 mg DAILY IV Last administered on 07/31/16 09:24; Admin Dose 20 MG; Start 07/30/16 at 09:00 Levofloxacin (Levaquin) 500 mg DAILY@06 PO Last administered on 07/31/16 05:09 ; Admin Dose 500 MG; Start 07/30/16 at 06:00 IMMANUEL MEAD NP Jul 31, 2016 12:55
[2016-07-31] MEDS ORDERED: IODIXANOL LOCM 100 ML BTL ONE (13:46)
[2016-07-31] MEDS ORDERED: SOD CHLORIDE 0.9% 100 ML ONE (13:46)
--- NOTE | 2016-07-31 14:18 | RADRPT ---
PROCEDURE: CT Abdomen and pelvis with contrast. CLINICAL INDICATION: Anemia TECHNIQUE: CT scan of the abdomen and pelvis with contrast was performed on a multidetector high-r esolution CT scan. The patient was scanned following the uncomplicated intravenous administration o f 100 ml Visipaque 320. Coronal and sagittal reformatted images were obtained from the axial source images. Standard CT of the abdomen pelvis with contrast protocols were performed. The total exam CTDI equals 21.81 mGy and the total exam DLP equals 1337.26 mGy-cm. One or more of the following dose reduction techniques were used: - Automated exposure control. - Adjustment of the mA and/or kV according to patient size. Use of iterative reconstruction technique. COMPARISON: None. FINDINGS: The spleen is normal in size without evidence of focal lesions. The liver is normal in size with a 5 mm low density in the anterior superior left lobe of the liver too small to characterize but is li qian a cyst. No other focal hepatic lesions.. The pancreas and adrenal glands are normal in size c onfiguration without focal lesions. The gallbladder is unremarkable and there is no evidence of jer iary ductal dilation. The kidneys are normal in size without hydronephrosis bilaterally. There are multiple bilateral nonenhancing low density lesion the largest involving the lateral left mid to in ferior kidney measuring 3.8 cm and the largest on the right involving the right superior parapelvic region measuring 3 cm likely all due to cysts. A followup bilateral renal ultrasound may be helpful for further evaluation. The urinary bladder is contracted but otherwise unremarkable. There is mil d enlargement of the prostate gland impressing the floor in her bladder. Negative for intra-abdominal free air, free fluid, abscesses or lymphadenopathy. There is atheroscl erotic vascular disease of the aorta and iliac vessels but no evidence of aneurysm. There is a fat containing left inguinal hernia but no herniated bowel or strangulation. There is a 4 mm soft pulmo nary nodule in the lateral inferior lingula of the left upper lobe. Follow up CT scan of the chest is suggested. Remainder the lung bases are clear. There are degenerative changes lower thoracic and lumbar spine. There are no acute osseous findings. There are no osteoblastic/osteolytic lesions. IMPRESSION: 1. Normal size spleen without focal lesions. 2. Numerous bilateral nonenhancing renal low densities as described above likely all cysts. Follow -up bilateral renal ultrasound may be helpful for further evaluation. 3. 5 mm low density anterior superior left lobe of the liver too small to characterize but is likel y a cyst. Follow-up ultrasound may be helpful for further evaluation. 4. 4 mm soft pulmonary nodule in the lateral lingula left upper lobe. Follow up CT scan of the [address] st is suggested for further evaluation. 5. Fat containing left inguinal hernia but no herniated bowel or strangulation. 6. Extensive atherosclerotic vascular disease but no evidence of aneurysm. 7. Chronic osseous findings. RPTAT:AAJJ Physician Paco Date Time Electronically viewed and signed by Yadi Richardson Physician on 07/31/2016 14:17 BM/
--- NOTE | 2016-07-31 14:44 | CONS ---
Date/Time of Note Date/Time of Note DATE: 07/31/16 TIME: 14:41 Assessment/Plan Assessment/Plan Chief Complaint/Hosp Course IMPRESSION: 1. Congestive heart failure exacerbation, diastolic by previous echo 2016.- slowly improving volume status 2. Hypertension-improved 3. History of coronary artery disease. 4. Fevers. 5. Possible pneumonia. 6. Anemia s/p endoscopy 7. Borderline urinary tract infection. Recc: -Continue asa/plavix -Continue toprol/benazepril and f/u BP closely with currently reasonable BP control -Continue statin -Continue abx's/bronchodilators/steroids -Continue gentle lasix diuresis and f/u volume status closely Problems: Consultation Date/Type/Reason Admit Date/Time Jul 27, 2016 at 18:28 Initial Consult Date 07/28/2016 Type of Consultation: Cardiology Reason for Consultation CHF Referring Provider: DANISHA RAMACHANDRAN MD Exam/Review of Systems Vital Signs Vitals Vital Signs Date Time Temp Pulse Resp B/P Pulse Ox O2 Delivery O2 Flow Rate FiO2 07/31/16 08:35 99.0 63 16 139/64 95 07/30/16 15:00 Room Air Intake and Output 07/30/16 07/30/16 07/31/16 15:00 23:00 07:00 Intake Total 640 ml 360 ml Balance 640 ml 360 ml Exam Review of Systems: CONSTITUTIONAL: No fevers, chills. PULMONARY: No sob CARDIOVASCULAR: No chest pain/palpitations GASTROINTESTINAL: No nausea/vomiting. GENITOURINARY: No hematuria/dysuria. MUSCULOSKELETAL: No myagias/arthalgias. PSYCHIATRIC: The patient denies depression. NEUROLOGIC: No weakness Constitutional: alert Psych: no complaints Head: normocephalic ENMT: mucosa pink and moist Neck: jvd (9 cm water), supple Respiratory: diminished breath sounds (at bases/B) Cardiovascular: regular rate and rhythm Gastrointestinal: non-tender, soft Musculoskeletal: muscle tone (normal) Extremities: edema (none) Neurological: other (No focal deficits) Results Result Diagram: 07/31/16 0536 07/31/16 0536 Results 24 hrs Laboratory Tests Test 07/31/16 05:36 White Blood Count 4.3 L Red Blood Count 5.06 Hemoglobin 9.4 L Hematocrit 30.5 L Mean Corpuscular Volume 60.3 L Mean Corpuscular Hemoglobin 18.6 L Mean Corpuscular Hemoglobin Concent 30.8 L Red Cell Distribution Width 17.2 H Platelet Count 170 Mean Platelet Volume 10.6 H Neutrophils % 47.0 Band Neutrophils % 4.0 Lymphocytes % 38.0 Monocytes % 7.0 Eosinophils % 2.0 Basophils % 2.0 Neutrophils # 2.0 Lymphocytes # 1.6 Monocytes # 0.3 Eosinophils # 0.1 Basophils # 0.1 Sodium Level 142 Potassium Level 3.6 Chloride Level 102 Carbon Dioxide Level 22 Anion Gap 22 H Blood Urea Nitrogen 26 H Creatinine 1.05 Glucose Level 190 Calcium Level 8.5 Medications Medications Current Medications Acetaminophen (Tylenol Tab) 650 mg Q4H PRN PO PAIN AND OR ELEVATED TEMP; Start 07/27/16 at 10:00 Enoxaparin Sodium (Lovenox) 40 mg DAILY SC Last administered on 07/31/16 09:23 ; Admin Dose 40 MG; Start 07/27/16 at 10:00 Diagnostic Test (Pha) (Accucheck) 1 ea 02 XX ; Start 07/28/16 at 02:00 Miscellaneous Information 1 ea NOTE XX ; Start 07/27/16 at 10:30 Glucose (Glutose) 15 gm Q15M PRN PO DECREASED GLUCOSE; Start 07/27/16 at 10:30 Glucose (Glutose) 22.5 gm Q15M PRN PO DECREASED GLUCOSE; Start 07/27/16 at 10: 30 Dextrose (D50w Syringe) 25 ml Q15M PRN IV DECREASED GLUCOSE; Start 07/27/16 at 10:30 Dextrose (D50w Syringe) 50 ml Q15M PRN IV DECREASED GLUCOSE; Start 07/27/16 at 10:30 Glucagon (Glucagen) 1 mg Q15M PRN IM DECREASED GLUCOSE; Start 07/27/16 at 10:30 Glucose (Glutose) 15 gm Q15M PRN BUCCAL DECREASED GLUCOSE; Start 07/27/16 at 10 :30 Aspirin (Aspirin) 81 mg DAILY PO Last administered on 07/31/16 09:21; Admin Dose 81 MG; Start 07/27/16 at 12:00 Clopidogrel Bisulfate (plaVIX) 75 mg DAILY PO Last administered on 07/31/16 09 :21; Admin Dose 75 MG; Start 07/27/16 at 12:00 Tamsulosin HCl (Flomax) 0.4 mg DAILY PO Last administered on 07/31/16 09:21; Admin Dose 0.4 MG; Start 07/27/16 at 12:00 Pantoprazole (Protonix Tab) 40 mg DAILY@06 PO Last administered on 07/31/16 05 :09; Admin Dose 40 MG; Start 07/28/16 at 06:00 Atorvastatin Calcium (Lipitor) 20 mg DAILY@21 PO Last administered on 20:56; Admin Dose 20 MG; Start 07/27/16 at 21:00 Benazepril HCl (Lotensin) 10 mg DAILY PO Last administered on 07/31/16 09:21; Admin Dose 10 MG; Start 07/28/16 at 09:00 Metoprolol Succinate (Toprol Xl) 100 mg BID PO Last administered on 07/31/16 09:21; Admin Dose 100 MG; Start 07/28/16 at 21:00 Furosemide (Lasix) 20 mg DAILY IV Last administered on 07/31/16 09:24; Admin Dose 20 MG; Start 07/30/16 at 09:00 Levofloxacin (Levaquin) 500 mg DAILY@06 PO Last administered on 07/31/16 05:09 ; Admin Dose 500 MG; Start 07/30/16 at 06:00 ZARINA JAVED Jul 31, 2016 14:44
--- NOTE | 2016-07-31 14:45 | CONS ---
Date/Time of Note Date/Time of Note DATE: 07/31/16 TIME: 14:43 Assessment/Plan Assessment/Plan Chief Complaint/Hosp Course The patient is a 71 year old male with diabetes, BPH, CAD, with community- acquired pneumonia with microcytic anemia and elevated RDW. - s/p EGD showing mild reflux esophagitis. Faint esophageal varix noted in the distal esophagus, but not very prominent varices. Mild erythema noted in the fundus of the stomach. Duodenum showed evidence of several areas of erythema. The old scar noted in the duodenum indicating perhaps a duodenal ulcer. At this time photographs were obtained. Biopsies were done from the antrum, the lesser curvature and the fundus to rule out H. pylori infection. PPI therapy per GI. - s/p colonoscopy with the entire colon appeared perfectly normal with no mucosal abnormality. A 5 mm flat polyp was noted located at 30 cm from the anus. This polyp was biopsied and removed. A few scattered diverticula noted. They are small in size, they are not severe. No bleeding noted. Cecum appeared normal. Endoscope was withdrawn and minimal internal and minimal external hemorrhoids were noted and the procedure was terminated. f/u path report - Hgb fairly stable in the 9s. - f/u path report. Appreciate GI assistance. - Iron panel more suggestive of anemia of chronic inflammation though cannot rule out component of iron deficiency, especially in the setting of microcytic anemia with elevated RDW. - LDH normal, B12/folate WNL, retic count inappropriately low - Will continue to follow - CT A/P ordered per primary which demonstrated: 1. Normal size spleen without focal lesions. 2. Numerous bilateral nonenhancing renal low densities as described above likely all cysts. Follow-up bilateral renal ultrasound may be helpful for further evaluation. 3. 5 mm low density anterior superior left lobe of the liver too small to characterize but is likely a cyst. Follow-up ultrasound may be helpful for further evaluation. 4. 4 mm soft pulmonary nodule in the lateral lingula left upper lobe. Follow up CT scan of the chest is suggested for further evaluation. 5. Fat containing left inguinal hernia but no herniated bowel or strangulation. 6. Extensive atherosclerotic vascular disease but no evidence of aneurysm. 7. Chronic osseous findings. Problems: Consultation Date/Type/Reason Admit Date/Time Jul 27, 2016 at 18:28 Initial Consult Date 07/29/16 Type of Consultation: Hematology Referring Provider: DANISHA RAMACHANDRAN MD 24 HR Interval Summary Free Text/Dictation Patient has no complaints, ambulating in the halls and feels well. Exam/Review of Systems Vital Signs Vitals Vital Signs Date Time Temp Pulse Resp B/P Pulse Ox O2 Delivery O2 Flow Rate FiO2 07/31/16 08:35 99.0 63 16 139/64 95 07/30/16 15:00 Room Air Intake and Output 07/30/16 07/30/16 07/31/16 15:00 23:00 07:00 Intake Total 640 ml 360 ml Balance 640 ml 360 ml Exam Constitutional: alert, oriented Psych: no complaints Head: normocephalic Eyes: nl conjunctiva Neck: supple Respiratory: clear to auscultation Cardiovascular: regular rate and rhythm Gastrointestinal: non-tender, soft Musculoskeletal: nl extremities to inspection Results Result Diagram: 07/31/16 0536 07/31/16 0536 Results 24 hrs Laboratory Tests Test 07/31/16 05:36 White Blood Count 4.3 L Red Blood Count 5.06 Hemoglobin 9.4 L Hematocrit 30.5 L Mean Corpuscular Volume 60.3 L Mean Corpuscular Hemoglobin 18.6 L Mean Corpuscular Hemoglobin Concent 30.8 L Red Cell Distribution Width 17.2 H Platelet Count 170 Mean Platelet Volume 10.6 H Neutrophils % 47.0 Band Neutrophils % 4.0 Lymphocytes % 38.0 Monocytes % 7.0 Eosinophils % 2.0 Basophils % 2.0 Neutrophils # 2.0 Lymphocytes # 1.6 Monocytes # 0.3 Eosinophils # 0.1 Basophils # 0.1 Sodium Level 142 Potassium Level 3.6 Chloride Level 102 Carbon Dioxide Level 22 Anion Gap 22 H Blood Urea Nitrogen 26 H Creatinine 1.05 Glucose Level 190 Calcium Level 8.5 Medications Medications Current Medications Acetaminophen (Tylenol Tab) 650 mg Q4H PRN PO PAIN AND OR ELEVATED TEMP; Start 07/27/16 at 10:00 Enoxaparin Sodium (Lovenox) 40 mg DAILY SC Last administered on 07/31/16t 09:23 ; Admin Dose 40 MG; Start 07/27/16 at 10:00 Diagnostic Test (Pha) (Accucheck) 1 ea 02 XX ; Start 07/28/16 at 02:00 Miscellaneous Information 1 ea NOTE XX ; Start 07/27/16 at 10:30 Glucose (Glutose) 15 gm Q15M PRN PO DECREASED GLUCOSE; Start 07/27/16 at 10:30 Glucose (Glutose) 22.5 gm Q15M PRN PO DECREASED GLUCOSE; Start 07/27/16 at 10: 30 Dextrose (D50w Syringe) 25 ml Q15M PRN IV DECREASED GLUCOSE; Start 07/27/16 at 10:30 Dextrose (D50w Syringe) 50 ml Q15M PRN IV DECREASED GLUCOSE; Start 07/27/16 at 10:30 Glucagon (Glucagen) 1 mg Q15M PRN IM DECREASED GLUCOSE; Start 07/27/16 at 10:30 Glucose (Glutose) 15 gm Q15M PRN BUCCAL DECREASED GLUCOSE; Start 07/27/16 at 10 :30 Aspirin (Aspirin) 81 mg DAILY PO Last administered on 07/31/16 09:21; Admin Dose 81 MG; Start 07/27/16 at 12:00 Clopidogrel Bisulfate (plaVIX) 75 mg DAILY PO Last administered on 07/31/16 09 :21; Admin Dose 75 MG; Start 07/27/16 at 12:00 Tamsulosin HCl (Flomax) 0.4 mg DAILY PO Last administered on 07/31/16 09:21; Admin Dose 0.4 MG; Start 07/27/16 at 12:00 Pantoprazole (Protonix Tab) 40 mg DAILY@06 PO Last administered on 07/31/16 05 :09; Admin Dose 40 MG; Start 07/28/16 at 06:00 Atorvastatin Calcium (Lipitor) 20 mg DAILY@21 PO Last administered on 20:56; Admin Dose 20 MG; Start 07/27/16 at 21:00 Benazepril HCl (Lotensin) 10 mg DAILY PO Last administered on 07/31/16 09:21; Admin Dose 10 MG; Start 07/28/16 at 09:00 Metoprolol Succinate (Toprol Xl) 100 mg BID PO Last administered on 07/31/16 09:21; Admin Dose 100 MG; Start 07/28/16 at 21:00 Furosemide (Lasix) 20 mg DAILY IV Last administered on 07/31/16 09:24; Admin Dose 20 MG; Start 07/30/16 at 09:00 Levofloxacin (Levaquin) 500 mg DAILY@06 PO Last administered on 07/31/16 05:09 ; Admin Dose 500 MG; Start 07/30/16 at 06:00 TO,ANTHONY Mcclellan MD Jul 31, 2016 14:45
[2016-07-31] MEDS ORDERED: LEVO500T10 PO (18:00)
[2016-07-31] MEDS ORDERED: PANT40TA4 PO (18:00)
--- NOTE | 2016-08-02 21:59 | DS ---
DATE OF ADMISSION: 07/27/2016 DATE OF DISCHARGE: 07/31/2016 ADDENDUM The patient had EGD with biopsy, showed chronic gastritis and no evidence of malignancy, no helicoba cter organisms. The patient was also evaluated by Dr. Sigala in hematology/oncology consultation. The patient's anemia is suggestive of chronic inflammation. The patient also underwent a CT of the abdo men and pelvis that showed small low-density left lobe liver cyst and prominence of pulmonary nodule in the lateral lingula. No other acute findings. The patient's condition improved. The patient d enies any shortness of breath, denies any chest pain, and the patient is discharged home. CONDITION ON DISCHARGE: Hemodynamically stable. ACTIVITY: As patient tolerates. DIET: 1800 ADA, 2 gram sodium, low-fat, low-cholesterol diet. MEDICATION ON DISCHARGE: The patient is given prescriptions for: 1. Levaquin 500 mg p.o. daily for 5 more days. 2. Protonix 40 mg p.o. b.i.d. for 30 days. The patient to continue on: 1. Amlodipine. 2. Aspirin. 3. Plavix. 4. Restasis. 5. Zetia. 6. Ativan. 7. Metoprolol. 8. Nitroglycerin p.r.n. 9. Lovaza. 10. Simvastatin. 11. Janumet. 12. VESIcare. 13. Tamsulosin. 14. Diovan. DISCHARGE INSTRUCTIONS: The patient is instructed to follow up with Dr. White in gastroenterology consultation. The patient is instructed to follow up with PMD in 1 to 2 weeks. Interdisciplinary plan of care was established for this patient. Plan of care was discussed with Dr Leann Ramachandran. Dictated By: GAURAV FERRO METHODS TIME ANALYST for DANISHA RAMACHANDRAN MD SR/NTS Conf#: [id number] DID#: [id number]
--- NOTE | 2016-08-03 08:10 | PN ---
DATE: SUBJECTIVE: The patient at this time has no significant abdominal pain, nausea, vomiting. He was a dmitted with severe anemia. Hemoglobin was below 9 grams. He was transfused up to an acceptable le paddy. Upper endoscopy showed minimal esophagitis, gastritis. Biopsy of the stomach results are pend ing. Colonoscopy was unremarkable. CLINICAL IMPRESSION: Anemia, etiology is not very clearly known. Rule out intra-abdominal causes o f the anemia. PLAN: Recommend CAT scan of the abdomen and pelvis with IV contrast to rule out intra-abdominal pat hology. Dictated By: MELISSA FARIAS/JODEE Conf#: [id number] DID#: [id number]
--- NOTE | 2016-08-03 08:58 | DS ---
DATE OF ADMISSION: 07/27/2016 DATE OF DISCHARGE: 07/31/2016 FINAL DIAGNOSES: 1. Healthcare-acquired pneumonia, status post treatment. 2. Acute coronary syndrome, ruled out. 3. Coronary artery disease. 4. Diabetes mellitus. 5. Benign prostatic hypertrophy. 6. Hypertension. 7. Obesity. 8. Anemia. 9. Status post polyp removal during colonoscopy. 10. Mild reflux esophagitis and duodenal ulcer. BRIEF HISTORY: The patient is a 71-year-old [place] gentleman with history of coronary artery dise ase status post stent placement in the past, hypertension, diabetes, hyperlipidemia, BPH. The patie nt developed shortness of breath, generalized weakness in the legs, and dry cough, and presented to the emergency room with fever of 101.3, and also hypertension. Blood pressure was elevated to 186/8 4. The patient underwent a chest x-ray in the emergency room, which revealed hyperinflation of the lungs and bibasilar atelectasis and possible infiltrate plus interstitial pulmonary edema, also pulm onary congestion. The patient was started on broad spectrum antibiotics and admitted for further ev aluation and management. HOSPITAL COURSE: The patient was evaluated by Dr. Brito in cardiology consultation. The patient was continued on aspirin and Plavix, as well as metoprolol, benazepril, and statins. The patient's cardiac enzymes were negative. The patient was also evaluated by Dr. Ellington in infectious disease c onsultation. The patient was given ceftriaxone and Levaquin. The patient was also noted to have an emia and was evaluated by Dr. White in gastroenterology consultation. The patient underwent EGD wi th notion of mild reflux esophagitis and duodenum showed evidence of several areas of erythema with an old scar. A biopsy was obtained and the patient continued on proton pump inhibitor therapy. DICTATION ENDS HERE Dictated By: GAURAV FERRO DEGREASING SOLUTION RECLAIMER for DANISHA RAMACHANDRAN MD SR/NTS Conf#: [id number] DID#: [id number] CC: DANISHA RAMACHANDRAN MD;*EndCC*
== END 2016-07-31 18:53 | disposition home or self-care (01) | DRG 193 ==
LOC: E/R 03:15 → PP2 05:08 → OBSVTOIN 18:28
PROVIDERS: ADMIT Internal Medicine; ATTEND Internal Medicine
PROC: 0DB68ZX Excision of Stomach, Via Natural or Artificial Opening Endoscopic, Diagnostic (ICD-10-PCS; principal; 2016-07-30 13:30)
PROC: 0DBM8ZX Excision of Descending Colon, Via Natural or Artificial Opening Endoscopic, Diagnostic (ICD-10-PCS; 2016-07-30 13:30)
DX: J18.9 Pneumonia, unspecified organism (principal); I50.33 Acute on chronic diastolic (congestive) heart failure; E11.8 Type 2 diabetes mellitus with unspecified complications; N39.0 Urinary tract infection, site not specified; E66.9 Obesity, unspecified; D50.9 Iron deficiency anemia, unspecified; E11.9 Type 2 diabetes mellitus without complications; D12.4 Benign neoplasm of descending colon; Z95.5 Presence of coronary angioplasty implant and graft; N40.0 Benign prostatic hyperplasia without lower urinary tract symptoms; Z68.37 Body mass index [BMI] 37.0-37.9, adult; Z87.891 Personal history of nicotine dependence; Z79.02 Long term (current) use of antithrombotics/antiplatelets; I11.0 Hypertensive heart disease with heart failure; K21.0 Gastro-esophageal reflux disease with esophagitis; K57.30 Diverticulosis of large intestine without perforation or abscess without bleeding; K64.9 Unspecified hemorrhoids
CPT/HCPCS: 71010; 74177; 80048; 80053; 80061; 81001; 81003; 82270; 82550; 82553; 82607; 82728; 82746; 82962; 83540; 83605; 83615; 83880; 84443; 84484; 85025; 85045; 85610; 85730; 87040; 87086; 87400; 88305; 88312; 90686; 93005; 93306; G0378; J1940; J0696; J1650; J1815; J1956; J7030; Q9967

== ENCOUNTER 2018-09-09 21:46 | Emergency (ER) | payer MEDICARE, OTHER ==
[~2018-09-09] VITALS: Ht 154.9 cm; Wt 122.7 kg
[~2018-09-09 21:46] MED LIST changes: +AMLO-147 PO; -CLOT30CR35 TOP; -ESOM40CA PO; -EZET10TA3 PO; +EZET10TA31 PO; +LEVO500T10 PO; -METO200T4 PO; +METO200T49 PO; -NASO17 NASAL; +NITR0.4T32 SL; -NITR0.4T6 SL; +PANT40TA4 PO; +SIMV40TA3 PO; +SITA1TAB5 PO; -SITA1TAB7 PO; +SOLI5TAB2 PO; -SOLI5TAB5 PO; -VALS320T11 PO; +VALS320T2 PO
[2018-09-09 21:51] VITALS: Ht 154.9 cm; Wt 122.7 kg
--- NOTE | 2018-09-09 23:15 | ERD ---
ER Documentation Chief Complaint Chief Complaint htn x2 days w/ MELCHOR and mild CP HPI This is a 73-year-old man complaining of right-sided headache while driving this evening, he checked his blood pressure and systolic blood pressure at home was about 200 mmHg and given his headache he was worried and came here for john luation. Patient's blood pressure and headache have both improved while in the emergency department. He denies slurred speech, no weakness in his arms or legs, no gait ataxia, no complaints of chest pain or shortness of breath ROS All systems reviewed and are negative except as per history of present illness. Medications Home Meds Active Scripts Naproxen* (Naprosyn*) 500 Mg Tablet, 500 MG PO BID PRN for PAIN AND/OR INFLAMMATION, #30 TAB Prov:PRECIOUS BENTLEY MD 09/09/18 Levofloxacin* (Levofloxacin*) 500 Mg Tablet, 500 MG PO DAILY@06 for 5 Days, TAB Prov:GAURAV FERRO 07/31/16 Pantoprazole* (Pantoprazole*) 40 Mg Tablet.dr, 40 MG PO BID for 30 Days Prov:GAURAV FERRO 07/31/16 Reported Medications Amlodipine Besylate* (Amlodipine Besylate*) 10 Mg Tablet, 10 MG PO DAILY, #30 TAB 07/27/16 Simvastatin (Simvastatin) 40 Mg Tablet, 40 MG PO DAILY, #30 TAB 07/27/16 Sitagliptin Phos/Metformin HCl (Janumet 50-1,000 mg Tablet) 1 Each Tablet, 1 EACH PO BID, TAB 07/27/16 [place]-3 Acid Ethyl Esters (Lovaza) 1 Gm Capsule, 1 GM PO DAILY, CAP 07/27/16 Ezetimibe* (Zetia*) 10 Mg Tablet, 10 MG PO DAILY, TAB 07/27/16 Nitroglycerin* (Nitroglycerin* SL) 0.4 Mg Tab.subl, 0.4 MG SL Q5MIN PRN for CHEST PAIN, BOTTLE 07/17/15 Simvastatin* (Zocor*) 40 Mg Tablet, 40 MG PO QHS, #30 TAB 07/17/15 Metoprolol Succinate* (Toprol XL*) 200 Mg Tab.sr.24h, 200 MG PO DAILY, #30 TAB 07/17/15 Amlodipine Besylate* (Norvasc*) 10 Mg Tablet, 10 MG PO DAILY, TAB 07/17/15 Valsartan* (Diovan*) 320 Mg Tablet, 320 MG PO DAILY, TAB 07/17/15 Clopidogrel Bisulfate (Clopidogrel) 75 Mg Tablet, 75 MG PO DAILY, #30 TAB 07/17/15 Ezetimibe* (Zetia*) 10 Mg Tablet, 10 MG PO HS, TAB 07/16/15 Cyclosporine* (Restasis* Oph) 32 Ea Droperette, 1 DROP BOTH EYES Q12, #1 BOX 07/16/15 Tamsulosin Hcl* (Flomax*) 0.4 Mg Cap.er.24h, 0.4 MG PO DAILY, CAP 07/16/15 Aspirin (Qamar Child) 81 Mg Chew, 81 MG PO DAILY 10/03/12 Solifenacin* (Vesicare*) 5 Mg Tablet, 5 MG PO DAILY 10/03/12 Lorazepam* (Ativan*) 0.5 Mg Tablet, MG PO PRN 10/03/12 Allergies Allergies: Coded Allergies: procaine (Unverified Allergy, Unknown, 07/16/15) PMhx/Soc CAD status post PCI with stent placement x3, diabetes mellitus, BPH, hypertensi on, obesity, esophagitis History of Surgery: Yes (8 stents, right inguinal hernia repair) Anesthesia Reaction: No Hx Neurological Disorder: No Hx Respiratory Disorders: No Hx Cardiac Disorders: Yes (CAD , HTN , VA x 2 , ) Hx Psychiatric Problems: No Hx Miscellaneous Medical Probl: No Hx Alcohol Use: No Hx Substance Use: No Hx Tobacco Use: No FmHx Family History: No diabetes Physical Exam Vitals Vital Signs Date Temp Pulse Resp B/P (MAP) Pulse Ox O2 O2 Flow FiO2 Time Delivery Rate 09/10/18 71 16 115/70 97 Room Air 00:15 (85) 09/09/18 98.4 72 17 140/63 97 Room Air 23:25 (88) 09/09/18 98.9 79 17 161/72 97 21:51 (101) Physical Exam Const: No acute distress, afebrile Resp: Clear to auscultation bilaterally Cardio: Regular rate and rhythm, no murmurs Abd: Soft, non tender, non distended. Normal bowel sounds, no masses pal pated, no guarding Skin: No petechiae or rashes, no ecchymosis, no target lesions Back: No midline or flank tenderness Ext: No cyanosis, 2+ pitting edema in the lower extremities bilaterally, calves symmetrical Neur: Awake and alert x3, no focal deficits or facial asymmetry, no slurred speech, no paresis, gait normal Psych: Normal Mood and Affect Results 24 hrs Laboratory Tests Test 09/09/18 22:56 Bedside Glucose 135 mg/dL Current Medications Medications Dose Sig/Brian Start Time Status Last (Trade) Ordered Route PRN Stop Time Admin Dose Reason Admin Ibuprofen 600 mg ONCE ONCE 09/10/18 DC 09/10/18 (Motrin) PO 00:00 09/10/18 00:07 00:01 Procedures/MDM IV line was established patient was placed on monitoring coordinator rhythm strip revealed a sinus rhythm at about 80 bpm with upright P and T waves. Patient was afebrile EKG performed, read by me revealed normal sinus rhythm 77 bpm, normal axis, right ventricular conduction delay QRS duration 104 ms, no concerning ST elevations or depressions noted Administered ibuprofen [address] scan of the brain was negative for acute bleed mass or shift Patient's headache resolved in the emergency department, blood pressure improved. He will be discharged to follow-up with PMD Differential diagnoses considered, included but not limited to acute coronary syndrome, pulmonary embolism, aortic dissection, abdominal aortic aneurysm, sepsis, stroke, meningitis, encephalitis, pneumonia, appendicitis, cholecystitis, bowel obstruction, pyelonephritis, nephrolithiasis, cystitis, as well as metabolic, hematologic, and electrolyte abnormalities. As well as abscess, cellulitis, fractures, and dislocations. Patient feels much better at this time, and vital signs are normal, symptoms have improved. I did give strict instructions to return to the ED if symptoms continue or worsen, patient will otherwise follow-up with primary care physician. Patient understood instructions and agreed to plan. Disclaimer: Inadvertent spelling and grammatical errors are likely due to EHR/dictation software use and do not reflect on the overall quality of patient care. Also, please note that the electronic time recorded on this note does not necessarily reflect the actual time of the patient encounter. Departure Diagnosis: Primary Impression: Hypertension Hypertension type: essential hypertension Qualified Codes: I10 - Essential (primary) hypertension Additional Impression: Headache Headache type: tension-type Headache chronicity pattern: acute headache Intractability: not intractable Qualified Codes: G44.209 - Tension-type headache, unspecified, not intractable Condition: PRECIOUS Ellsworth MD September 09, 2018 23:14
[2018-09-09] MEDS ORDERED: NAPR-985 PO (23:49)
[2018-09-10] MEDS ORDERED: IBUPROFEN 600 MG TAB PO ONE
[2018-09-10 00:15] VITALS: BP 115/70; PULSE 71; RESP 16
== END 2018-09-10 00:20 | disposition home or self-care (01) ==
LOC: E/R 21:46
DX: I10 Essential (primary) hypertension (principal); I25.10 Atherosclerotic heart disease of native coronary artery without angina pectoris; I25.2 Old myocardial infarction; E11.9 Type 2 diabetes mellitus without complications; G44.209 Tension-type headache, unspecified, not intractable; E66.9 Obesity, unspecified; Z79.01 Long term (current) use of anticoagulants; Z79.84 Long term (current) use of oral hypoglycemic drugs; Z79.82 Long term (current) use of aspirin; Z98.61 Coronary angioplasty status; Z68.43 Body mass index [BMI] 50.0-59.9, adult
CPT/HCPCS: 70450; 82962; 93005